=== PATIENT | female | born 1930 | race Caucasian/White ===

== ENCOUNTER 2016-12-17 19:57 | Inpatient (IN) | payer MEDICARE ==
[~2016-12-17] VITALS: Ht 162.6 cm; Wt 61.2 kg
[~2016-12-17 19:57] MED LIST: AMIO200T2 PO; CIPR-262 PO; LEVO50TA8 PO; METO-302 PO; RIVA10TA PO; ZOLP5TAB2 PO
[2016-12-17 21:26] LABS: *BILIRUBIN,URIN NEGATIVE (NEGATIVE); *BLOOD, URINE 2+ (NEGATIVE); *CLARITY,URINE CLOUDY (CLEAR); *COLOR,URINE YELLOW (YELLOW); *KETONES,URINE NEGATIVE (NEGATIVE); *PROTEIN,URINE 2+ (NEGATIVE); *UROBILINOGEN,URINE 0.2 E.U./dl (NORMAL); LEUKOCYTE ESTERASE ,URINE 3+ (NEGATIVE); UGLUCOSE NEGATIVE (NEGATIVE)
[2016-12-17 21:35] LABS: CALCIUM 8.8 mg/dL (8.5-10.1); NITRITE, URINE POSITIVE (NEGATIVE); POTASSIUM 4.1 mmol/L (3.5-5.1)
[2016-12-17 21:36] LABS: WBC,URINE TNTC /HPF (0-3)
[2016-12-17 21:37] LABS: BACTERIA,URINE MANY /HPF (NONE SEEN); BASOPHILS # (AUTO) 0.1 K/uL (0.0-0.2); BASOPHILS % (AUTO) 0.4 % (0.0-2.0); EOSINOPHILS # (AUTO) 0.1 K/uL (0.0-0.7); EOSINOPHILS % (AUTO) 0.3 % (0.0-7.0); HEMATOCRIT 39.2 % (37.0-47.0); HEMOGLOBIN 13.1 g/dL (12.0-16.0); LYMPHOCYTES % (AUTO) 10.8 % (20.5-51.5); MEAN CORPUSCULAR HEMOGLOBIN 32.2 uug (27.0-31.0); MEAN CORPUSCULAR HGB CONC 33 g/dL (32.0-37.0); MEAN CORPUSCULAR VOLUME 96.4 fL (81.0-99.0); MONOCYTES # (AUTO) 2.1 K/uL (0.1-1.30); MONOCYTES % (AUTO) 11.4 % (0.0-11.0); NEUTROPHILS # (AUTO) 13.8 K/uL (1.8-8.9); NEUTROPHILS % (AUTO) 77.1 % (38.5-71.5); PLATELET COUNT (AUTO) 335 K/uL (150-450); RED BLOOD CELL COUNT(AUTO) 4.07 MIL/uL (4.20-5.40); RED CELL DISTRIBUTION WIDTH 13.4 % (11.5-14.5); SQUAMOUS EPITHELIAL CELL,UR FEW /HPF (NONE SEEN); WHITE BLOOD COUNT (AUTO) 18.1 K/uL (4.0-11.2)
[2016-12-17 21:38] LABS: CREATININE 1.4 mg/dL (0.6-1.3)
--- NOTE | 2016-12-17 22:08 | NUR ---
EPIC CONTACTED, SPOKE WITH RESPONDER, WILL HAVE DR. STRONG PAGED....
[2016-12-17] MEDS ORDERED: CEFTRIAXONE 1 G in IV DEXTROSE 5% 50 ML IV ONE (22:15)
[2016-12-17] MEDS ORDERED: IV NORMAL SALINE 500 ML BAG IV ONE (22:15)
[2016-12-17 22:17] LABS: ACANTHOCYTES 2+; BAND % (MANUAL) 4 % (0-10); EOSINOPHILS % (MANUAL) 1 % (0-8); LYMPHOCYTES % (MANUAL) 11 % (20-40); MONOCYTES % (MANUAL) 11 % (2-10); NEUTROPHILS % (MANUAL) 73 % (42-75); PLATELET ESTIMATE ADEQUATE
[2016-12-17] MEDS ORDERED: CEFTRIAXONE 1 G VIAL ONE (22:38)
[2016-12-17] MEDS ORDERED: DIPH50CA37 PO (23:02)
--- NOTE | 2016-12-17 23:24 | NUR ---
Pt. admitted to med surg , under care of Dr. Jimenez, Belongs List completed, pt is alert, oriented x 4, no resp distress noted or reported upon assessment. pt to be transferred via gurney...
--- NOTE | 2016-12-17 23:30 | NUR ---
ADMITTED NEW PATIENT TO ROOM 209, ALERT, ORIENTED X4,TEMP 98.2, DENIES PAIN/DISCOMFORT,NSR RATE 65 ON TELE MONITOR,PATIENT RECEIVED ROCEPHIN 1 GM IV FROM ER.PT C/O INSOMNIA WILL NOTIFY .
[2016-12-17 23:51] VITALS: BP 136/62
[2016-12-18] MEDS ORDERED: ACETAMINOPHEN 325 MG TABLET PO PRN
[2016-12-18] MEDS ORDERED: ONDANSETRON 4 MG/2 ML VIAL IV PRN
[2016-12-18] MEDS ORDERED: diphenhydrAMINE 50 MG CAPSULE PO PRN
[2016-12-18] MEDS ORDERED: MORPHINE SULFATE 2 MG/1 ML DISP.SYRIN IV PRN
[2016-12-18] MEDS ORDERED: MAGNESIUM HYDROXIDE 30 ML LIQUID UDC PO PRN
[2016-12-18] MEDS ORDERED: IV 1/2NS 1000 ML 1,000 ML IV PRN
[2016-12-18] MEDS: ZOLPIDEM 5 MG TABLET PO PRN ×2 (00:39→23:43)
[2016-12-18] MEDS ORDERED: ZOLPIDEM 5 MG TABLET ONE (00:45)
[2016-12-18 05:43] VITALS: BP 138/72
--- NOTE | 2016-12-18 05:58 | NUR ---
PATIENT SLEPT WELL , TOOK AMBIEN FOR INSOMNIA,NSR ON MONITOR,AFEBRILE, NO ACUTE DISTRESS OVER NIGHT.FALL PRECAUTIONS, INSTRUCTED PATIENT TO CALL FOR ASSISTANCE.
[2016-12-18 06:35] LABS: BASOPHILS # (AUTO) 0.2 K/uL (0.0-0.2); BASOPHILS % (AUTO) 1.1 % (0.0-2.0); EOSINOPHILS # (AUTO) 0.1 K/uL (0.0-0.7); EOSINOPHILS % (AUTO) 0.7 % (0.0-7.0); HEMATOCRIT 36.1 % (37.0-47.0); LYMPHOCYTES # (AUTO) 2.6 K/uL (0.8-4.8); LYMPHOCYTES % (AUTO) 13.4 % (20.5-51.5); MEAN CORPUSCULAR HEMOGLOBIN 32.6 uug (27.0-31.0); MEAN CORPUSCULAR HGB CONC 33 g/dL (32.0-37.0); MEAN CORPUSCULAR VOLUME 97.6 fL (81.0-99.0); MONOCYTES # (AUTO) 2.8 K/uL (0.1-1.30); MONOCYTES % (AUTO) 14.3 % (0.0-11.0); NEUTROPHILS % (AUTO) 70.5 % (38.5-71.5); PLATELET COUNT (AUTO) 316 K/uL (150-450); RED BLOOD CELL COUNT(AUTO) 3.69 MIL/uL (4.20-5.40); WHITE BLOOD COUNT (AUTO) 19.7 K/uL (4.0-11.2)
[2016-12-18] MEDS ORDERED: IV 1/2NS 1000 ML 1,000 ML IV SCH (07:32)
[2016-12-18 07:53] LABS: ALBUMIN 2.8 g/dL (3.4-5.0); BILIRUBIN,TOTAL 0.7 mg/dL (0.2-1.0); CALCIUM 8.5 mg/dL (8.5-10.1); CREATININE 1.1 mg/dL (0.6-1.3); MAGNESIUM 1.8 mg/dL (1.8-2.4); POTASSIUM 3.9 mmol/L (3.5-5.1); TOTAL PROTEIN, SERUM 6.9 g/dL (6.4-8.2)
--- NOTE | 2016-12-18 08:00 | NUR ---
AWAKE ALERT NO SOB OR PAIN ON FALL PRECAUTION BED ALARM ON AND CALL CLARK IN REACH
[2016-12-18] MEDS: PANTOPRAZOLE SODIUM 40 MG TABLET.DR PO SCH (08:44)
[2016-12-18 08:45] LABS: THYROID STIMULATING HORMONE 1.126 mIU/mL (0.358-3.740)
[2016-12-18] MEDS: LEVOTHYROXINE SODIUM 50 MCG TABLET PO SCH (08:46)
[2016-12-18] MEDS: AMIODARONE HCL 200 MG TABLET PO SCH (08:46)
[2016-12-18 11:09] LABS: LYMPHOCYTES % (MANUAL) 15 % (20-40); MONOCYTES % (MANUAL) 4 % (2-10); NEUTROPHILS % (MANUAL) 81 % (42-75); PLATELET ESTIMATE ADEQUATE
[2016-12-18 11:45] VITALS: BP 114/66
--- NOTE | 2016-12-18 13:00 | NUR ---
DR MORGAN,O SEE PATIENT AND FAMILY THIS PM ,ASSIST OOB UP IN CHAIR AND AMB IN THE HALKL WAY DOING WELL PROJECT ANALYST PAIN OR FEVER
[2016-12-18 15:46] VITALS: BP 109/57
--- NOTE | 2016-12-18 17:00 | NUR ---
RESTING HEMODYNAMIC STATUS STABLE NO SOB OR FEVER SAFETY MEASURE PROVIDED CALL CLARK IN REACH
[2016-12-18 19:00] VITALS: BP 133/66
--- NOTE | 2016-12-18 20:59 | NUR ---
Received patient awake, alert and resting comfortably in bed. Denied pain, no s/s of distress. Call neil within reach. Will continue to monitor.
[2016-12-18] MEDS ORDERED: DOCUSATE SODIUM 250 MG CAPSULE PO SCH (21:00)
[2016-12-18] MEDS: DOCUSATE SODIUM 100 MG CAPSULE PO SCH (21:00)
[2016-12-18] MEDS: CEFTRIAXONE 1 G in IV DEXTROSE 5% 50 ML IV SCH ×3 (23:25)
[2016-12-19 04:00] VITALS: BP 128/65
--- NOTE | 2016-12-19 06:46 | NUR ---
Patient slept through the night, no s/s of distress. No complaints of pain. Assisted to the bathroom; no hematuria noted, verbalized no discomfort upon voiding. Due meds given. Frequent checks done. Will endorse accordingly.
[2016-12-19] MEDS: LEVOTHYROXINE SODIUM 50 MCG TABLET PO SCH (06:55)
[2016-12-19] MEDS: PANTOPRAZOLE SODIUM 40 MG TABLET.DR PO SCH (06:56)
[2016-12-19 06:58] LABS: BASOPHILS # (AUTO) 0.1 K/uL (0.0-0.2); BASOPHILS % (AUTO) 0.4 % (0.0-2.0); EOSINOPHILS # (AUTO) 0.2 K/uL (0.0-0.7); EOSINOPHILS % (AUTO) 1.5 % (0.0-7.0); HEMATOCRIT 36.7 % (37.0-47.0); HEMOGLOBIN 11.8 g/dL (12.0-16.0); LYMPHOCYTES % (AUTO) 18.9 % (20.5-51.5); MEAN CORPUSCULAR HEMOGLOBIN 31.5 uug (27.0-31.0); MEAN CORPUSCULAR HGB CONC 32 g/dL (32.0-37.0); MEAN CORPUSCULAR VOLUME 97.8 fL (81.0-99.0); MONOCYTES # (AUTO) 2.8 K/uL (0.1-1.30); MONOCYTES % (AUTO) 17.9 % (0.0-11.0); NEUTROPHILS # (AUTO) 9.6 K/uL (1.8-8.9); NEUTROPHILS % (AUTO) 61.3 % (38.5-71.5); PLATELET COUNT (AUTO) 338 K/uL (150-450); RED BLOOD CELL COUNT(AUTO) 3.76 MIL/uL (4.20-5.40); RED CELL DISTRIBUTION WIDTH 12.9 % (11.5-14.5); WHITE BLOOD COUNT (AUTO) 15.8 K/uL (4.0-11.2)
[2016-12-19 07:18] LABS: ALBUMIN 2.7 g/dL (3.4-5.0); BILIRUBIN,TOTAL 0.5 mg/dL (0.2-1.0); CALCIUM 8.5 mg/dL (8.5-10.1); CREATININE 1.1 mg/dL (0.6-1.3); MAGNESIUM 1.9 mg/dL (1.8-2.4); PHOSPHOROUS 2.8 mg/dL (2.5-4.9); POTASSIUM 3.9 mmol/L (3.5-5.1); TOTAL PROTEIN, SERUM 7.1 g/dL (6.4-8.2)
--- NOTE | 2016-12-19 08:00 | NUR ---
AWAKE ALERT COOPERATE WELL NO PAIN OR SOB AT THIS TIME RESTING WITH CALL CLARK IN REACH ON FALL PRECAUTION
[2016-12-19] MEDS: AMIODARONE HCL 200 MG TABLET PO SCH (09:35)
[2016-12-19 10:37] LABS: EOSINOPHILS % (MANUAL) 3 % (0-8); LYMPHOCYTES % (MANUAL) 18 % (20-40); MONOCYTES % (MANUAL) 15 % (2-10); NEUTROPHILS % (MANUAL) 64 % (42-75); PLATELET ESTIMATE ADEQUATE
[2016-12-19 12:00] VITALS: BP 99/62
--- NOTE | 2016-12-19 12:00 | NUR ---
CLINICAL PHARMACY NOTE(REVIEW OF [facility] MEDICATIONS This is an 86 y/o female brought to ER for worsening weakness. Past medical history from past visit Past Medical Hx: Yes HX Neurological Disorder: No HX Cardiac Disorder: Yes (RHYTHM) HX Respiratory Disorder: No HX Gastrointestinal Disorder: Yes (GERD ) HX Genitourinary Disorder: Yes HX Diabetes: No HX Cancer: Yes (LT BREAST) HX Musculoskeletal Disorder: Yes (OSTEOARTHRITIS) HX Psychiatric Problems: No admitting diagnosis Urosepsis All medications review as of today two medications on high risk list zolpidem and amiodarone. Both medications for home medication list. Zolpidem associated with sedation and increase fall risk. Amiodarone is associated with increase toxicities,including thyroid disease,pulmonary disorders, and QT prolongation. First-line therapy in patients with concomitant heart failure or substantial left ventricular hypertrophy if rhythm control is preferred over rate control. Patient last visit here was 09/05/15 and was seen by electroformer who recommended continuing amiodarone. First entered on our medication reconciliation list on 02/20/14. Lin was first entered on our medication reconciliation on 09/06/15. No recommendations at this time. Patient has been on amiodarone for several years now and has been seen by a electroformer in the past. Zolpidem patient may have become dependent on and maybe difficult to discontinue at this time.
[2016-12-19 16:30] VITALS: BP 111/66
--- NOTE | 2016-12-19 18:00 | NUR ---
RESTING WELL AND QUIET HEMODYNAMIC STATUS STABLE SAFETY MEASURE PROVIDED CALL CLARK WITHIN REACH
[2016-12-19 19:00] VITALS: BP 101/65
--- NOTE | 2016-12-19 19:15 | NUR ---
PATIENT ALERT, ORIENTED, SEATED AT THE CHAIR, NO COMPLAIN OF PAIN, AMBULATE TO BATHROOM, WITH MIN ASSIST, CONT TO MONITOR.
[2016-12-19] MEDS: DOCUSATE SODIUM 100 MG CAPSULE PO SCH (20:50)
[2016-12-19] MEDS: CEFTRIAXONE 1 G in IV DEXTROSE 5% 50 ML IV SCH (23:20)
[2016-12-20] MEDS: ZOLPIDEM 5 MG TABLET PO PRN (00:16)
--- NOTE | 2016-12-20 00:30 | NUR ---
PATIENT IV HEPLOCK ON LEFT FOREAM DISLOGGED, D/C THE IV KEPT SITE ELEVATED DUE TO SLIGHT SWELLING, APPLIED COOL PACK FOR FEW MINUTES. CONT TO MONITOR.
[2016-12-20 04:00] VITALS: BP 134/83
[2016-12-20] MEDS: PANTOPRAZOLE SODIUM 40 MG TABLET.DR PO SCH (06:00)
[2016-12-20] MEDS: LEVOTHYROXINE SODIUM 50 MCG TABLET PO SCH (06:00)
[2016-12-20 06:17] LABS: BASOPHILS # (AUTO) 0.1 K/uL (0.0-0.2); BASOPHILS % (AUTO) 0.8 % (0.0-2.0); EOSINOPHILS # (AUTO) 0.3 K/uL (0.0-0.7); EOSINOPHILS % (AUTO) 2.1 % (0.0-7.0); HEMATOCRIT 38.5 % (37.0-47.0); HEMOGLOBIN 12.6 g/dL (12.0-16.0); MEAN CORPUSCULAR HEMOGLOBIN 32.3 uug (27.0-31.0); MEAN CORPUSCULAR HGB CONC 33 g/dL (32.0-37.0); MEAN CORPUSCULAR VOLUME 98.2 fL (81.0-99.0); MONOCYTES # (AUTO) 2.1 K/uL (0.1-1.30); MONOCYTES % (AUTO) 16.4 % (0.0-11.0); NEUTROPHILS # (AUTO) 7.4 K/uL (1.8-8.9); NEUTROPHILS % (AUTO) 57.7 % (38.5-71.5); PLATELET COUNT (AUTO) 355 K/uL (150-450); RED BLOOD CELL COUNT(AUTO) 3.92 MIL/uL (4.20-5.40); WHITE BLOOD COUNT (AUTO) 12.9 K/uL (4.0-11.2)
--- NOTE | 2016-12-20 06:18 | NUR ---
PATIENT SLEPT WELL MOST OF THE NIGHT, SWELLING ON LEFT FOREARM SUBSIDED, COMPLAIN OF ARTHITIS PAIN ON SHOULDER, NECK, REQUEST FOR TYLENOL AND WHEN BACK TO SLEEP, NO CHEST NO SOB NOTED, CALL LIGHT WITHIN REACH. ASSIST WITH TOILETING, CALL LIGHT WITHIN REACH.
[2016-12-20 07:40] LABS: CALCIUM 8.6 mg/dL (8.5-10.1); CREATININE 1.1 mg/dL (0.6-1.3); PHOSPHOROUS 3.6 mg/dL (2.5-4.9); POTASSIUM 3.8 mmol/L (3.5-5.1)
[2016-12-20] MEDS: AMIODARONE HCL 200 MG TABLET PO SCH (08:50)
--- NOTE | 2016-12-20 08:50 | NUR ---
RECEIVED PATIENT IN BED AWAKE ALERT AND ORIENTED DENIES PAIN OR DISCOMFORTS AT THIS TIME.REMAIN ON ANTIBIOTICS ORDERED WITH NO ADVERSE OR ALLERGIC REACTIONS AT THIS TIME.MADE COMFORTABLE NOT IN DISTRESS AT THIS TIME.
[2016-12-20 09:10] LABS: EOSINOPHILS % (MANUAL) 2 % (0-8); LYMPHOCYTES % (MANUAL) 24 % (20-40); MONOCYTES % (MANUAL) 16 % (2-10); NEUTROPHILS % (MANUAL) 58 % (42-75); PLATELET ESTIMATE ADEQUATE
--- NOTE | 2016-12-20 11:00 | NUR ---
SEEN BY DR MORGAN WITH ORDER TO DISCHARGE PATIENT HOME TODAY.PATIENTS SON IS AT HER BEDSIDE AND STATED THAT SHE WILL TAKE HER HOME.
--- NOTE | 2016-12-20 11:01 | NUR ---
Discharge: The patient will be discharged today back home [[address], [place] [address]] [address] Loomis Her son will be picking her up via private car. [facility] [ ; ] will follow up.
[2016-12-20 11:26] VITALS: BP 134/85
--- NOTE | 2016-12-20 11:45 | NUR ---
PATIENT DISCHARGED PICKED UP BY HER SON IN SATISFACTORY CONDITION WITH DISCHARGE INSTRUCTIONS AND PRESCRIPTIONS ANS PATIENT INSTRUCTED TO CALL HER PRIMARY DOCTOR FOR A FOLLOW UP APPOINTMENT WITHIN THE NEXT ONE TO TWO WEEKS ANS SHE EXPRESSED UNDERSTANDING.PATIENT WAS SEEN AND EDUCATED BY [facility].
== END 2016-12-20 11:45 | disposition home health service (06) | DRG 871 ==
LOC: ER 19:57 → MED 23:22 → TELE 23:50 → MED 12-18 10:00
PROVIDERS: ADMIT Internal Medicine; ATTEND Internal Medicine
DX: A41.9 Sepsis, unspecified organism (principal); N17.0 Acute kidney failure with tubular necrosis; N39.0 Urinary tract infection, site not specified; C94.6 Myelodysplastic disease, not elsewhere classified; K59.00 Constipation, unspecified; E03.9 Hypothyroidism, unspecified; K21.9 Gastro-esophageal reflux disease without esophagitis; M19.90 Unspecified osteoarthritis, unspecified site; Z80.9 Family history of malignant neoplasm, unspecified; I10 Essential (primary) hypertension; D51.9 Vitamin B12 deficiency anemia, unspecified; I48.0 Paroxysmal atrial fibrillation; Z91.81 History of falling; M06.9 Rheumatoid arthritis, unspecified; Z82.61 Family history of arthritis; Z90.81 Acquired absence of spleen
CPT/HCPCS: 36415; 70030-TC; 71010; 83550; 83605; 83735; 84100; 84443; 85025; 85730; 87040; 87077; 87086; 92506; 93005; 97001; A4663; J0696; J3490; J7040; J7060

== ENCOUNTER 2016-12-23 06:41 | Inpatient (IN) | payer MEDICARE ==
[~2016-12-23] VITALS: Ht 160 cm; Wt 59.4 kg
[~2016-12-23 06:41] MED LIST changes: -CIPR-262 PO; +DIPH50CA37 PO; -RIVA10TA PO
[2016-12-23 08:18] LABS: BASOPHILS # (AUTO) 0.1 K/uL (0.0-0.2); BASOPHILS % (AUTO) 0.4 % (0.0-2.0); EOSINOPHILS # (AUTO) 0.1 K/uL (0.0-0.7); EOSINOPHILS % (AUTO) 0.9 % (0.0-7.0); HEMATOCRIT 33.8 % (37.0-47.0); HEMOGLOBIN 11.5 g/dL (12.0-16.0); LYMPHOCYTES # (AUTO) 2.8 K/uL (0.8-4.8); LYMPHOCYTES % (AUTO) 17.8 % (20.5-51.5); MEAN CORPUSCULAR HEMOGLOBIN 32.7 uug (27.0-31.0); MEAN CORPUSCULAR HGB CONC 34 g/dL (32.0-37.0); MEAN CORPUSCULAR VOLUME 96.2 fL (81.0-99.0); NEUTROPHILS # (AUTO) 9.8 K/uL (1.8-8.9); NEUTROPHILS % (AUTO) 61.9 % (38.5-71.5); PLATELET COUNT (AUTO) 448 K/uL (150-450); RED BLOOD CELL COUNT(AUTO) 3.51 MIL/uL (4.20-5.40); RED CELL DISTRIBUTION WIDTH 12.9 % (11.5-14.5); WHITE BLOOD COUNT (AUTO) 15.8 K/uL (4.0-11.2)
[2016-12-23 08:19] LABS: CALCIUM 8.5 mg/dL (8.5-10.1); CREATININE 1.2 mg/dL (0.6-1.3); POTASSIUM 3.9 mmol/L (3.5-5.1)
[2016-12-23 08:25] LABS: BILIRUBIN,DIRECT 0.2 mg/dL (0.0-0.2); BILIRUBIN,TOTAL 0.6 mg/dL (0.2-1.0); TOTAL PROTEIN, SERUM 7.8 g/dL (6.4-8.2)
[2016-12-23 08:27] LABS: TROPONIN I < 0.017 ng/mL (0.00-0.056)
[2016-12-23 08:37] LABS: LACTIC ACID 0.8 mmol/L (0.4-2.0)
[2016-12-23 08:42] LABS: EOSINOPHILS % (MANUAL) 2 % (0-8); LYMPHOCYTES % (MANUAL) 16 % (20-40); MONOCYTES % (MANUAL) 20 % (2-10); NEUTROPHILS % (MANUAL) 62 % (42-75); PLATELET ESTIMATE ADEQUATE
[2016-12-23] MEDS ORDERED: MORPHINE SULFATE 4 MG/1 ML DISP.SYRIN ONE (08:57)
[2016-12-23] MEDS ORDERED: ONDANSETRON 4 MG/2 ML VIAL ONE (08:57)
[2016-12-23] MEDS ORDERED: MORPHINE SULFATE 4 MG/1 ML DISP.SYRIN IV ONE (09:30)
[2016-12-23] MEDS ORDERED: ONDANSETRON IV *ER 4 MG/2 ML VIAL IV ONE (09:30)
[2016-12-23 11:05] VITALS: BP 121/65
[2016-12-23] MEDS ORDERED: HYDROMORPHONE 1 MG/1 ML DISP.SYRIN IV PRN (11:45)
[2016-12-23] MEDS ORDERED: MAGNESIUM HYDROXIDE 30 ML LIQUID UDC PO PRN (11:45)
[2016-12-23] MEDS ORDERED: ONDANSETRON 4 MG/2 ML VIAL IV PRN (11:45)
[2016-12-23] MEDS ORDERED: ZOLPIDEM 5 MG TABLET PO PRN (11:45)
[2016-12-23] MEDS ORDERED: HYDROCODONE/APAP 5-325MG TABLET PO PRN (11:45)
[2016-12-23] MEDS ORDERED: ACETAMINOPHEN 325 MG TABLET PO PRN (11:45)
[2016-12-23] MEDS: CARISOPRODOL 350 MG TABLET PO SCH ×2 (13:09→17:00)
[2016-12-23 15:24] VITALS: BP 130/70
[2016-12-23] MEDS ORDERED: KETOROLAC TROMETHAMINE 15 MG INJ IVP STA (17:49)
[2016-12-23] MEDS: methylPREDNISolone SOD SUCC 40 MG/ML VIAL IV SCH ×2 (18:27→21:36)
[2016-12-23] MEDS ORDERED: NAPROXEN 250 MG TABLET PO SCH (20:00)
[2016-12-23 20:57] VITALS: BP 108/57
[2016-12-23] MEDS ORDERED: DOCUSATE SODIUM 250 MG CAPSULE PO SCH (21:00)
[2016-12-23] MEDS ORDERED: DOCUSATE SODIUM 100 MG CAPSULE PO SCH (21:00)
[2016-12-23] MEDS ORDERED: NAPROXEN 500 MG TABLET ONE (21:56)
[2016-12-24 05:14] VITALS: BP 108/58
[2016-12-24] MEDS: methylPREDNISolone SOD SUCC 40 MG/ML VIAL IV SCH ×2 (06:45→14:23)
[2016-12-24] MEDS ORDERED: LEVOTHYROXINE SODIUM 50 MCG TABLET PO SCH (07:00)
[2016-12-24] MEDS ORDERED: PANTOPRAZOLE SODIUM 40 MG TABLET.DR PO SCH (07:00)
[2016-12-24 07:17] LABS: BASOPHILS # (AUTO) 0.1 K/uL (0.0-0.2); BASOPHILS % (AUTO) 0.5 % (0.0-2.0); EOSINOPHILS % (AUTO) 0.1 % (0.0-7.0); HEMATOCRIT 36.3 % (37.0-47.0); HEMOGLOBIN 12.3 g/dL (12.0-16.0); LYMPHOCYTES # (AUTO) 1.7 K/uL (0.8-4.8); LYMPHOCYTES % (AUTO) 13.6 % (20.5-51.5); MEAN CORPUSCULAR HEMOGLOBIN 32.8 uug (27.0-31.0); MEAN CORPUSCULAR HGB CONC 34 g/dL (32.0-37.0); MEAN CORPUSCULAR VOLUME 97.2 fL (81.0-99.0); MONOCYTES # (AUTO) 0.1 K/uL (0.1-1.30); MONOCYTES % (AUTO) 0.8 % (0.0-11.0); NEUTROPHILS # (AUTO) 10.4 K/uL (1.8-8.9); PLATELET COUNT (AUTO) 465 K/uL (150-450); RED BLOOD CELL COUNT(AUTO) 3.74 MIL/uL (4.20-5.40); RED CELL DISTRIBUTION WIDTH 12.8 % (11.5-14.5); WHITE BLOOD COUNT (AUTO) 12.3 K/uL (4.0-11.2)
[2016-12-24 07:47] LABS: ALBUMIN 2.8 g/dL (3.4-5.0); BILIRUBIN,TOTAL 0.4 mg/dL (0.2-1.0); CALCIUM 9.3 mg/dL (8.5-10.1); CREATININE 1.2 mg/dL (0.6-1.3); MAGNESIUM 2.4 mg/dL (1.8-2.4); PHOSPHOROUS 4.4 mg/dL (2.5-4.9); POTASSIUM 4.9 mmol/L (3.5-5.1); TOTAL PROTEIN, SERUM 7.7 g/dL (6.4-8.2)
[2016-12-24] MEDS: CARISOPRODOL 350 MG TABLET PO SCH ×2 (08:53→12:54)
[2016-12-24] MEDS: NAPROXEN 250 MG TABLET PO SCH ×2 (08:54→12:54)
[2016-12-24] MEDS ORDERED: AMIODARONE HCL 200 MG TABLET PO SCH (09:00)
[2016-12-24] MEDS ORDERED: METOPROLOL SUCCINATE XL 25 MG TAB.SR.24H PO SCH (09:00)
[2016-12-24 11:34] VITALS: BP 106/60
[2016-12-24] MEDS ORDERED: OMEP20TA20 PO (12:59)
[2016-12-24] MEDS ORDERED: METH4TAB3 PO (12:59)
[2016-12-24] MEDS ORDERED: HYDR-3326 PO (12:59)
[2016-12-24 15:29] VITALS: BP 109/54
== END 2016-12-24 16:00 | disposition home or self-care (01) | DRG 551 ==
LOC: ER 06:44 → MED 10:17
PROVIDERS: ADMIT Internal Medicine; ATTEND Internal Medicine
DX: M50.122 Cervical disc disorder at C5-C6 level with radiculopathy (principal); N17.0 Acute kidney failure with tubular necrosis; N39.0 Urinary tract infection, site not specified; M19.90 Unspecified osteoarthritis, unspecified site; K21.9 Gastro-esophageal reflux disease without esophagitis; E03.9 Hypothyroidism, unspecified; I48.0 Paroxysmal atrial fibrillation; H35.30 Unspecified macular degeneration; I10 Essential (primary) hypertension; M06.9 Rheumatoid arthritis, unspecified; M48.02 Spinal stenosis, cervical region; M21.90 Unspecified acquired deformity of unspecified limb; Z90.81 Acquired absence of spleen; Z85.3 Personal history of malignant neoplasm of breast; H91.90 Unspecified hearing loss, unspecified ear; M47.892 Other spondylosis, cervical region
CPT/HCPCS: 36415; 70030-TC; 71010; 72125; 83605; 83735; 84100; 85025; 85730; 86140; 87040; 93005; 97001; A4663; J1170; J1885; J2270; J2405; J2920

== ENCOUNTER 2017-03-01 09:16 | Emergency (ER) | payer MEDICARE ==
[~2017-03-01] VITALS: Ht 162.6 cm; Wt 65.8 kg
[~2017-03-01 09:16] MED LIST changes: +AMBIEN5 MG PO; -AMIO200T2 PO; +AMIODARONE HCL200 MG PO; +BENADRYL50 MG PO; +CIPRO500 MG PO; +DEXILANT30 MG PO; -DIPH50CA37 PO; -LEVO50TA8 PO; +LEVOTHYROXINE50 MCG PO; +MEDROL4 M1 PO; -METO-302 PO; +METOPROLOL SUCC25 MG PO; +NORCO 5-325 TA1 EACH PO; +PRILOSEC OTC20 MG PO; +XARELTO10 MG PO; -ZOLP5TAB2 PO
--- NOTE | 2017-03-01 09:34 | NUR ---
Dr Berumen at the bedside for eval and exam.
[2017-03-01] MEDS ORDERED: MAG HYDROX/AL HYDROX/SIMETH 30 ML LIQUID UDC PO ONE (10:00)
[2017-03-01] MEDS ORDERED: predniSONE 20 MG TABLET PO ONE (10:00)
--- NOTE | 2017-03-01 10:03 | NUR ---
Patient discharged to home in stable conditon. Written and verbal after care instructions given. Patient verbalizes understanding of instructions. pt left er accompained by son.
[2017-03-01] MEDS ORDERED: predniSONE 50 MG TABLET ONE (10:04)
[2017-03-01] MEDS ORDERED: predniSONE 10 MG TABLET ONE (10:04)
[2017-03-01] MEDS ORDERED: MAG HYDROX/AL HYDROX/SIMETH 30 ML LIQUID UDC ONE (10:04)
[2017-03-01 10:05] VITALS: BP 135/69; PULSE 72; RESP 15; O2SAT 97
[2017-03-17] MEDS ORDERED: NORCO 5-325 TA1 EACH PO (11:08)
[2017-03-17] MEDS ORDERED: METHYLPREDNISOLO4 M1 PO (11:08)
== END 2017-03-01 10:06 | disposition home or self-care (01) ==
LOC: ER 09:16
DX: M54.17 Radiculopathy, lumbosacral region (principal); I10 Essential (primary) hypertension; K21.9 Gastro-esophageal reflux disease without esophagitis; I48.91 Unspecified atrial fibrillation; E03.9 Hypothyroidism, unspecified; C50.912 Malignant neoplasm of unspecified site of left female breast; Z96.641 Presence of right artificial hip joint
CPT/HCPCS: 99283; A4663; J7512 ×2

== ENCOUNTER 2017-03-04 09:59 | Emergency (ER) | payer MEDICARE ==
[~2017-03-04] VITALS: Ht 162.6 cm; Wt 65.8 kg
[~2017-03-04 09:59] MED LIST changes: -AMBIEN5 MG PO; +AMIO200T2 PO; -AMIODARONE HCL200 MG PO; -BENADRYL50 MG PO; -CIPRO500 MG PO; -DEXILANT30 MG PO; +DIPH50CA37 PO; +HYDR-3326 PO; +LEVO50TA8 PO; -LEVOTHYROXINE50 MCG PO; -MEDROL4 M1 PO; +METH4TAB3 PO; +METO-302 PO; -METOPROLOL SUCC25 MG PO; -NORCO 5-325 TA1 EACH PO; +OMEP20TA20 PO; -PRILOSEC OTC20 MG PO; -XARELTO10 MG PO; +ZOLP5TAB2 PO
[2017-03-04] MEDS ORDERED: DEXAMETHASONE SOD PHOSPHATE 4 MG INJ IM ONE (10:30)
[2017-03-04] MEDS ORDERED: HYDROCODONE/APAP 5-325MG TABLET PO ONE (10:30)
--- NOTE | 2017-03-04 10:30 | NUR ---
Patient was seen by Md for "sciatica" pain.
[2017-03-04] MEDS ORDERED: HYDROCODONE/APAP 5-325MG TABLET ONE (10:41)
[2017-03-04] MEDS ORDERED: DEXAMETHASONE SOD PHOSPHATE 10 MG INJ ONE (10:42)
--- NOTE | 2017-03-04 11:23 | NUR ---
Patient states pain has diminished some.
== END 2017-03-04 11:36 | disposition home or self-care (01) ==
LOC: ER 09:59
DX: M54.40 Lumbago with sciatica, unspecified side (principal); I10 Essential (primary) hypertension; I48.91 Unspecified atrial fibrillation; K21.9 Gastro-esophageal reflux disease without esophagitis; E03.9 Hypothyroidism, unspecified; C50.912 Malignant neoplasm of unspecified site of left female breast
CPT/HCPCS: A4663; J1100

== ENCOUNTER 2017-03-12 21:08 | Emergency (ER) | payer MEDICARE ==
[~2017-03-12] VITALS: Ht 162.6 cm; Wt 61.2 kg
[2017-03-12] MEDS: predniSONE 20 MG TABLET PO ONE (22:02)
--- NOTE | 2017-03-12 22:05 | NUR ---
Patient discharged to home in stable conditon. Written and verbal after care instructions given. Patient verbalizes understanding of instructions.
[2017-03-12] MEDS ORDERED: predniSONE 20 MG TABLET ONE (22:11)
== END 2017-03-12 22:05 | disposition home or self-care (01) ==
LOC: ER 21:10
DX: M54.41 Lumbago with sciatica, right side (principal); I10 Essential (primary) hypertension; K21.9 Gastro-esophageal reflux disease without esophagitis; I48.91 Unspecified atrial fibrillation; M19.90 Unspecified osteoarthritis, unspecified site
CPT/HCPCS: A4663; J7512

== ENCOUNTER 2017-03-17 09:01 | Inpatient (IN) | payer MEDICARE ==
[~2017-03-17] VITALS: Ht 162.6 cm; Wt 60.8 kg
--- NOTE | 2017-03-17 09:10 | NUR ---
DR MOHR AT THE BEDSIDE FOR EVAL AND EXAM.
[2017-03-17] MEDS ORDERED: HYDROMORPHONE 1 MG/1 ML DISP.SYRIN IM ONE (09:15)
[2017-03-17] MEDS ORDERED: PROMETHAZINE HCL 25 MG/1 ML VIAL IM ONE (09:15)
[2017-03-17] MEDS ORDERED: PROMETHAZINE HCL 25 MG/1 ML VIAL ONE (09:32)
[2017-03-17] MEDS ORDERED: HYDROMORPHONE 2 MG/1 ML DISP.SYRIN ONE (09:32)
--- NOTE | 2017-03-17 09:56 | NUR ---
Patient is resting comfortably in bed with eyes closed, NAD noted.
--- NOTE | 2017-03-17 11:00 | NUR ---
pt back from ct.
[2017-03-17] MEDS ORDERED: HYDR-3326 PO (11:08)
[2017-03-17] MEDS ORDERED: METH4TAB16 PO (11:08)
[2017-03-17 11:27] LABS: BASOPHILS # (AUTO) 0.1 K/uL (0.0-8.0); BASOPHILS % (AUTO) 0.3 % (0.0-2.0); EOSINOPHILS # (AUTO) 0.2 K/uL (0.0-0.7); EOSINOPHILS % (AUTO) 0.7 % (0.0-7.0); HEMOGLOBIN 13.1 G/DL (12.0-16.0); LYMPHOCYTES % (AUTO) 13.2 % (20.5-51.5); MEAN CORPUSCULAR HGB CONC 33 g/dL (32.0-37.0); MEAN CORPUSCULAR VOLUME 100.5 FL (81.0-99.0); MONOCYTES # (AUTO) 3.3 K/UL (0.1-1.30); MONOCYTES % (AUTO) 14.9 % (0.0-11.0); NEUTROPHILS # (AUTO) 15.8 K/UL (1.8-8.9); NEUTROPHILS % (AUTO) 70.9 % (38.5-71.5); PLATELET COUNT (AUTO) 279 K/UL (150-450); RED BLOOD CELL COUNT(AUTO) 3.98 MIL/UL (4.2-5.4)
[2017-03-17 11:33] LABS: WHITE BLOOD COUNT (AUTO) 22.4 K/UL (4.0-11.2)
--- NOTE | 2017-03-17 11:37 | NUR ---
dr fam consulted dr wadsworth(ortho).
[2017-03-17] MEDS ORDERED: ACETAMINOPHEN 325 MG TABLET PO PRN (11:45)
[2017-03-17] MEDS ORDERED: HYDROCODONE/APAP 5-325MG TABLET PO PRN (11:45)
[2017-03-17] MEDS ORDERED: Z GUARD REMEDY PASTE 57 GM TUBE TOP PRN (11:45)
[2017-03-17] MEDS ORDERED: ONDANSETRON 4 MG/2 ML VIAL IV PRN (11:45)
[2017-03-17 11:52] LABS: CARBON DIOXIDE 29 mmol/L (21-32); CHLORIDE 104 mmol/L (98-107); CREATININE 1.1 mg/dL (0.6-1.3); GLUCOSE 86 mg/dL (74-106); POTASSIUM 3.7 mmol/L (3.5-5.1); UREA NITROGEN, BLOOD 26 mg/dL (7-18)
[2017-03-17 11:53] LABS: BAND % (MANUAL) 1 % (0-10); LYMPHOCYTES % (MANUAL) 14 % (20-40); MONOCYTES % (MANUAL) 13 % (2-10); NEUTROPHILS % (MANUAL) 72 % (42-75)
[2017-03-17 12:04] LABS: ALANINE AMINOTRANSFERASE 25 U/L (14-59); ALKALINE PHOSPHATASE 100 U/L (50-136); ASPARTATE AMINOTRANSFERASE 22 U/L (15-37); BILIRUBIN,DIRECT 0.3 mg/dL (0.0-0.2); BILIRUBIN,TOTAL 1.1 mg/dL (0.2-1.0); TOTAL PROTEIN, SERUM 6.6 g/dL (6.4-8.2)
[2017-03-17 12:30] VITALS: BP 151/81
--- NOTE | 2017-03-17 12:45 | NUR ---
RECEIVED FOR ADMISSION 87 YEARS OLD FEMALE FROM ED WITH DX OF INTRACTABLE BACK PAIN PLACED INTO BED FIXED AND MADE COMFORTABLE PATIENT IS HARD OF HEARING BUT ALERT AND ORIENTED AND ASSISTED WITH THE ADMISSION PROCESS.HEPLOCK LEFT WRIST IS INTACT WITH NO S/S OF INFILTERATION ON SITE.PATIENT ORIENTED TO FACILITY PROTOCOL MADE COMFORTABLE AND WILL OBSERVE.
[2017-03-17] MEDS: HYDROCODONE/APAP 10-325 MG TABLET PO PRN ×2 (13:25→22:47)
[2017-03-17 16:15] VITALS: BP 146/82
[2017-03-17] MEDS: HYDROMORPHONE 1 MG/1 ML DISP.SYRIN IV PRN ×3 (16:28→23:36)
--- NOTE | 2017-03-17 18:00 | NUR ---
REMAIN ON PAIN MANAGEMENT ORDERED AND HELPFULASSISTED WITH REPOSITIONING Q2H.IV HEPLOCK WAS CHANGED TO HER RIGHT AC WITH GAUGE NUMBER 20 WITH ONE ATTEMPT AND TOLERATED PROCEDURE WELL.
--- NOTE | 2017-03-17 19:40 | NUR ---
PT RECEIVED IN BED. A/OX4. ABLE TO MAKE NEEDS KNOWN. V/S STABLE. NO SIGNS OF ACUTE DISTRESS. NO COMPLAINTS OF PAIN AT THIS TIME. SAFETY MEASURES IMPLEMENTED. CALL LIGHT WITHIN REACH. WILL CONTINUE TO MONITOR.
[2017-03-17 20:00] VITALS: BP 138/84
[2017-03-17] MEDS: DOCUSATE SODIUM 250 MG CAPSULE PO SCH (22:46)
[2017-03-18] MEDS: HYDROMORPHONE 1 MG/1 ML DISP.SYRIN IV PRN ×4 (01:14→21:10)
[2017-03-18] MEDS ORDERED: HYDROMORPHONE 1 MG/1 ML DISP.SYRIN IV PRN (01:15)
[2017-03-18] MEDS ORDERED: HYDROMORPHONE 1 MG/1 ML DISP.SYRIN ONE (01:22)
[2017-03-18 04:45] VITALS: BP 136/74
--- NOTE | 2017-03-18 05:32 | NUR ---
PT ASLEEP INTERMITTENTLY THROUGHOUT SHIFT. V/S STABLE. NO SIGNS OF ACUTE DISTRESS. PT REQUEST PAIN MEDICATION FOR PAIN LEVEL 10/10 THROUGHOUT THE NIGHT. MEDICATION ADMINISTERED ORDERED. PT VERBALIZED RELIEF OF PAIN. NEEDS ATTENDED. SAFETY MAINTAIN. CALL LIGHT WITHIN REACH.
[2017-03-18] MEDS: PANTOPRAZOLE SODIUM 40 MG TABLET.DR PO SCH (06:25)
[2017-03-18] MEDS: LEVOTHYROXINE SODIUM 50 MCG TABLET PO SCH (06:25)
[2017-03-18] MEDS: MAGNESIUM HYDROXIDE 30 ML LIQUID UDC PO PRN ×2 (06:38→20:06)
[2017-03-18 06:41] LABS: BASOPHILS % (AUTO) 0.2 % (0.0-2.0); EOSINOPHILS # (AUTO) 0.1 K/uL (0.0-0.7); EOSINOPHILS % (AUTO) 0.7 % (0.0-7.0); HEMATOCRIT 40.6 % (37-47); HEMOGLOBIN 13.4 G/DL (12.0-16.0); LYMPHOCYTES # (AUTO) 3.4 K/UL (0.8-4.8); LYMPHOCYTES % (AUTO) 20.7 % (20.5-51.5); MEAN CORPUSCULAR HEMOGLOBIN 33.2 UUG (27.0-31.0); MEAN CORPUSCULAR HGB CONC 33 g/dL (32.0-37.0); MEAN CORPUSCULAR VOLUME 100.7 FL (81.0-99.0); MONOCYTES # (AUTO) 1.7 K/UL (0.1-1.30); NEUTROPHILS # (AUTO) 11.4 K/UL (1.8-8.9); NEUTROPHILS % (AUTO) 68.4 % (38.5-71.5); PLATELET COUNT (AUTO) 316 K/UL (150-450); RED BLOOD CELL COUNT(AUTO) 4.03 MIL/UL (4.2-5.4); WHITE BLOOD COUNT (AUTO) 16.6 K/UL (4.0-11.2)
[2017-03-18 07:13] LABS: THYROID STIMULATING HORMONE 3.486 mIU/mL (0.358-3.740)
[2017-03-18] MEDS: HYDROCODONE/APAP 10-325 MG TABLET PO PRN ×2 (07:46→20:05)
[2017-03-18 07:57] LABS: CARBON DIOXIDE 31 mmol/L (21-32); CHLORIDE 102 mmol/L (98-107); CHOLESTEROL 160 mg/dL (<200); CREATININE 1.1 mg/dL (0.6-1.3); GLUCOSE 77 mg/dL (74-106); HDL CHOLESTEROL 82 mg/dL (40-60); MAGNESIUM 1.9 mg/dL (1.8-2.4); TRIGLYCERIDES 105 MG/DL (30-150); UREA NITROGEN, BLOOD 23 mg/dL (7-18)
[2017-03-18] MEDS ORDERED: HYDROMORPHONE 2 MG/1 ML DISP.SYRIN IV STA ×2 (08:54→14:29)
--- NOTE | 2017-03-18 08:55 | NUR ---
PATIENT IS HAVING SO MUCH PAIN CRYING AND VERY UNCOMFORTABLE I ALREADY GAVE HER MORCO THIS AM AND IT WAS TOO EARLY FOR ANOTHER DILAUDID SHOT SO I CALLED HEATHER SLITTER HELPER SPOKE TO HER WITH ORDER TO GIVE HER ONE DOSE OS 2 MG DILAUDID STAT AND SHE IS ON HER WAY AND WILL RECHECK THE PATIENT.
--- NOTE | 2017-03-18 09:00 | NUR ---
CALLED DR SAMAYOA TO INQUIRE IF HE WAS STILL COMING TO SEE THE PATIENT AND HE STATED THAT HE WILL LATER THIS AFTERNOON BUT REVIEWED THE RESULT OF THE CT DONE AND THEN GAVE ME NEW ORDERS.
[2017-03-18 09:20] LABS: EOSINOPHILS % (MANUAL) 1 % (0-8); LYMPHOCYTES % (MANUAL) 25 % (20-40); MONOCYTES % (MANUAL) 8 % (2-10); NEUTROPHILS % (MANUAL) 66 % (42-75)
[2017-03-18] MEDS: METOPROLOL SUCCINATE XL 25 MG TAB.SR.24H PO SCH (09:27)
[2017-03-18] MEDS: AMIODARONE HCL 200 MG TABLET PO SCH (09:27)
--- NOTE | 2017-03-18 10:20 | NUR ---
MRI L SPINE APPROVED
--- NOTE | 2017-03-18 10:35 | NUR ---
CALL RECEIVED FROM [facility] MRI COODINATOR WANTED TO KNOW IF PATIENT HAS A METAL IN HER HIM PATIENT DOES NOT KNOW SO HE STATED THAT HE WILL LOOK UP THE PREVIOUS REPORT AND WILL CALL ME BACK.
--- NOTE | 2017-03-18 11:17 | NUR ---
DR MARTINEZ HERE TO SEE PATIENT WITH NEW ORDERS AND NOTED.
[2017-03-18] MEDS: GABAPENTIN 100 MG CAPSULE PO SCH ×3 (11:31→17:30)
[2017-03-18] MEDS: KETOROLAC TROMETHAMINE 15 MG INJ IVP SCH ×2 (11:31→17:31)
[2017-03-18 12:15] VITALS: BP 91/53
--- NOTE | 2017-03-18 12:49 | NUR ---
CALL RECEIVED FROM JAKE AT [facility] STATED TO CALL THE AMBULANCE AND SEND THE PATIENT TO [facility] TH[facility] BY 3PM MED RESPONSE CALLED PATIENT AWARE AND ASSISTED WITH THE MRI QUESTIONAIRE CHECK LIST.
--- NOTE | 2017-03-18 13:02 | NUR ---
TOO CLOSE TO GIVE NEURONTIN WAS GIVEN TO THE PATIENT ABOUT 90 MINUTES AGO
[2017-03-18 13:17] VITALS: BP 98/55
--- NOTE | 2017-03-18 14:23 | NUR ---
SEEN BY SEVERIANO WILLIAM WITH NEW ORDERS AND NOTED.
--- NOTE | 2017-03-18 14:45 | NUR ---
PATIENT PICKED UP BY MED RESPONSE TO MRI ORDERED PATIENT WAS GIVEN DILAUDID ORDERED BEFORE SHE WAS PICKED UP.
--- NOTE | 2017-03-18 16:39 | NUR ---
PATIENT RETURNED FROM MRI DR SAMAYOA HERE TO SEE PATIENT AWAITING FOR ORDERS.
[2017-03-18 17:11] VITALS: BP 106/67
[2017-03-18 17:28] LABS: *BILIRUBIN,URIN NEGATIVE (NEGATIVE); *BLOOD, URINE NEGATIVE (NEGATIVE); *CLARITY,URINE CLEAR (CLEAR); *COLOR,URINE YELLOW (YELLOW); *KETONES,URINE 2+ (NEGATIVE); *PROTEIN,URINE 2+ (NEGATIVE); *UROBILINOGEN,URINE 0.2 E.U./dl (NORMAL); LEUKOCYTE ESTERASE ,URINE NEGATIVE (NEGATIVE); NITRITE, URINE NEGATIVE (NEGATIVE); UGLUCOSE NEGATIVE (NEGATIVE)
[2017-03-18 17:51] LABS: MUCUS,URINE FEW /LPF (0-FEW); SQUAMOUS EPITHELIAL CELL,UR FEW /HPF (NONE SEEN); WBC,URINE 0-3 /HPF (0-3)
--- NOTE | 2017-03-18 18:00 | NUR ---
RESTING MORE COMFORTABLY WATCHING TV AT THIS TIME AND WILL CONTINUE TO OBSERVE.
--- NOTE | 2017-03-18 19:25 | NUR ---
PT RECEIVED IN BED, AWAKE. ABLE TO MAKE NEEDS KNOWN. SON AT BEDSIDE. V/S STABLE. NO SIGNS OF ACUTE DISTRESS. NO COMPLAINTS OF PAIN AT THIS TIME. SAFETY MEASURE IMPLEMENTED. CALL LIGHT WITHIN REACH. WILL CONTINUE TO MONITOR.
[2017-03-18 20:00] VITALS: BP 99/56
[2017-03-18] MEDS: DOCUSATE SODIUM 250 MG CAPSULE PO SCH (20:06)
[2017-03-19] MEDS: KETOROLAC TROMETHAMINE 15 MG INJ IVP SCH ×2 (00:07→06:35)
[2017-03-19] MEDS: HYDROMORPHONE 1 MG/1 ML DISP.SYRIN IV PRN ×5 (05:31→23:57)
[2017-03-19 05:39] VITALS: BP 116/75
--- NOTE | 2017-03-19 06:04 | NUR ---
END OF SHIFT NOTES. PT SLEPT WELL THROUGHOUT SHIFT. V/S STABLE. NO SIGNS OF ACUTE DISTRESS. PAIN MEDICATIONS ADMINISTERED ORDERED. PT VERBALIZED PAIN RELIEF. NEEDS ATTENDED. SAFETY MAINTAINED. CALL LIGHT WITHIN REACH.
[2017-03-19] MEDS: PANTOPRAZOLE SODIUM 40 MG TABLET.DR PO SCH (06:35)
[2017-03-19] MEDS: LEVOTHYROXINE SODIUM 50 MCG TABLET PO SCH (06:35)
[2017-03-19 06:44] LABS: BASOPHILS % (AUTO) 0.1 % (0.0-2.0); EOSINOPHILS # (AUTO) 0.4 K/uL (0.0-0.7); EOSINOPHILS % (AUTO) 3.3 % (0.0-7.0); HEMATOCRIT 39.6 % (37-47); HEMOGLOBIN 13.1 G/DL (12.0-16.0); LYMPHOCYTES # (AUTO) 2.9 K/UL (0.8-4.8); MEAN CORPUSCULAR HEMOGLOBIN 33.5 UUG (27.0-31.0); MEAN CORPUSCULAR HGB CONC 33 g/dL (32.0-37.0); MEAN CORPUSCULAR VOLUME 100.8 FL (81.0-99.0); MONOCYTES # (AUTO) 1.3 K/UL (0.1-1.30); MONOCYTES % (AUTO) 9.8 % (0.0-11.0); NEUTROPHILS # (AUTO) 8.5 K/UL (1.8-8.9); NEUTROPHILS % (AUTO) 64.8 % (38.5-71.5); PLATELET COUNT (AUTO) 293 K/UL (150-450); RED BLOOD CELL COUNT(AUTO) 3.93 MIL/UL (4.2-5.4); WHITE BLOOD COUNT (AUTO) 13.1 K/UL (4.0-11.2)
[2017-03-19 06:47] LABS: CARBON DIOXIDE 31 mmol/L (21-32); CHLORIDE 103 mmol/L (98-107); CREATININE 1.7 mg/dL (0.6-1.3); GLUCOSE 112 mg/dL (74-106); MAGNESIUM 2.8 mg/dL (1.8-2.4); PHOSPHOROUS 4.3 mg/dL (2.5-4.9); POTASSIUM 4.5 mmol/L (3.5-5.1); UREA NITROGEN, BLOOD 37 mg/dL (7-18)
[2017-03-19 07:37] LABS: BAND % (MANUAL) 3 % (0-10); LYMPHOCYTES % (MANUAL) 29 % (20-40); MONOCYTES % (MANUAL) 10 % (2-10); NEUTROPHILS % (MANUAL) 58 % (42-75)
[2017-03-19] MEDS: AMIODARONE HCL 200 MG TABLET PO SCH (09:01)
[2017-03-19] MEDS: GABAPENTIN 100 MG CAPSULE PO SCH ×3 (09:01→18:31)
[2017-03-19] MEDS: METOPROLOL SUCCINATE XL 25 MG TAB.SR.24H PO SCH (09:02)
[2017-03-19] MEDS ORDERED: IV NS 1000 ML 1,000 ML IV PRN (09:30)
[2017-03-19] MEDS ORDERED: HYDROMORPHONE 2 MG/1 ML DISP.SYRIN IV ONE (10:15)
[2017-03-19 11:18] VITALS: BP 98/61
[2017-03-19 15:24] VITALS: BP 114/70
--- NOTE | 2017-03-19 15:59 | NUR ---
THIS RAMP BOSS SPOKE WITH GRACE AT [facility] [phone] KEY=[phone], STATES SHE WILL SEND SOMEONE OUT TO [employer] FOR A TLSO BRACE
[2017-03-19] MEDS: LIDOCAINE 5% PATCH TD SCH (18:31)
[2017-03-19 20:10] VITALS: BP 110/58
[2017-03-19] MEDS: DOCUSATE SODIUM 250 MG CAPSULE PO SCH (21:49)
[2017-03-20 04:47] VITALS: BP 93/54
--- NOTE | 2017-03-20 05:43 | NUR ---
PATIENT SLEPT WELL, PAIN MANAGEMENT ORDERED, EFFECTIVE. IVF RUNNING, NO INFILTRATION NOTED. TLSO BRACE AT BEDSIDE. CALL LIGHT WITHIN REACH, BED ALARM ON. WILL CONTINUE TO MONITOR.
[2017-03-20] MEDS: HYDROMORPHONE 1 MG/1 ML DISP.SYRIN IV PRN ×2 (06:00→10:36)
--- NOTE | 2017-03-20 06:00 | NUR ---
PT C/O OF ABDOMINAL PAIN. PT'S ABDOMEN DISTENDED, DIAPER DRY, NO URINE. BLADDER SCAN [phone]. CALLED MD, WAITING FOR CALL BACK.
[2017-03-20] MEDS: LEVOTHYROXINE SODIUM 50 MCG TABLET PO SCH (06:05)
[2017-03-20] MEDS: PANTOPRAZOLE SODIUM 40 MG TABLET.DR PO SCH (06:06)
[2017-03-20 06:37] LABS: EOSINOPHILS # (AUTO) 0.1 K/uL (0.0-0.7); HEMATOCRIT 38.8 % (37-47); HEMOGLOBIN 12.9 G/DL (12.0-16.0); LYMPHOCYTES # (AUTO) 1.2 K/UL (0.8-4.8); LYMPHOCYTES % (AUTO) 8.3 % (20.5-51.5); MEAN CORPUSCULAR HEMOGLOBIN 33.5 UUG (27.0-31.0); MEAN CORPUSCULAR HGB CONC 33 g/dL (32.0-37.0); MEAN CORPUSCULAR VOLUME 100.9 FL (81.0-99.0); MONOCYTES # (AUTO) 1.1 K/UL (0.1-1.30); MONOCYTES % (AUTO) 7.8 % (0.0-11.0); NEUTROPHILS # (AUTO) 11.8 K/UL (1.8-8.9); NEUTROPHILS % (AUTO) 82.9 % (38.5-71.5); PLATELET COUNT (AUTO) 289 K/UL (150-450); RED BLOOD CELL COUNT(AUTO) 3.84 MIL/UL (4.2-5.4); WHITE BLOOD COUNT (AUTO) 14.2 K/UL (4.0-11.2)
[2017-03-20 06:46] LABS: ALANINE AMINOTRANSFERASE 26 U/L (14-59); ALKALINE PHOSPHATASE 90 U/L (50-136); ASPARTATE AMINOTRANSFERASE 18 U/L (15-37); BILIRUBIN,TOTAL 0.4 mg/dL (0.2-1.0); CARBON DIOXIDE 28 mmol/L (21-32); CHLORIDE 103 mmol/L (98-107); CREATINE KINASE, TOTAL 32 U/L (26-192); CREATININE 1.6 mg/dL (0.6-1.3); GLUCOSE 102 mg/dL (74-106); MAGNESIUM 3.5 mg/dL (1.8-2.4); PHOSPHOROUS 4.8 mg/dL (2.5-4.9); POTASSIUM 4.8 mmol/L (3.5-5.1); TOTAL PROTEIN, SERUM 6.2 g/dL (6.4-8.2); UREA NITROGEN, BLOOD 41 mg/dL (7-18)
--- NOTE | 2017-03-20 07:00 | NUR ---
CALLED X 2, NO CALL BACK RECEIVED. AZRA ALEJO PAGED .
--- NOTE | 2017-03-20 07:30 | NUR ---
ASSISTED PT ON THE COMMODE WITH GREASE MONKEY NATTIE. PT VOIDED AND HAD A BM. ENDORSED TO THE DAY SHIFT RN. Addendum: 03/20/17 at 0747 by RERE PATHAK RN STILL NO CALL BACK FROM , WILL ENDORSE TO DAY SHIFT RN.
--- NOTE | 2017-03-20 07:35 | NUR ---
PT IS SITTING IN BED COMFORTABLY. NO S/S OF RESPIRATORY DISTRESS NOTED. IV INTACT/PATENT. ALL SAFETY NEEDS ARE MET. PT HAS VOIDED, HAD BM
[2017-03-20] MEDS: HYDROCODONE/APAP 10-325 MG TABLET PO PRN (07:53)
[2017-03-20] MEDS: GABAPENTIN 100 MG CAPSULE PO SCH ×3 (08:13→16:22)
[2017-03-20] MEDS: METOPROLOL SUCCINATE XL 25 MG TAB.SR.24H PO SCH (08:13)
[2017-03-20] MEDS: AMIODARONE HCL 200 MG TABLET PO SCH (08:13)
[2017-03-20] MEDS: LIDOCAINE 5% PATCH TD SCH (08:13)
[2017-03-20 11:55] VITALS: BP 105/54
[2017-03-20] MEDS ORDERED: OXYCODONE HCL 5 MG TABLET PO PRN (14:00)
[2017-03-20 15:28] VITALS: BP 104/59
[2017-03-20] MEDS ORDERED: HYDROCODONE/APAP 10-325 MG TABLET PO PRN (15:45)
[2017-03-20] MEDS ORDERED: AMIO200T6 PO (16:03)
[2017-03-20] MEDS ORDERED: GABA-532 PO (16:03)
[2017-03-20] MEDS ORDERED: LIDO30AD10 TD ×2 (16:03→22:11)
[2017-03-20] MEDS ORDERED: LEVO50TA8 PO (16:03)
[2017-03-20] MEDS ORDERED: METO-302 PO (16:03)
[2017-03-20] MEDS ORDERED: ONDA4VIA30 IV (16:03)
[2017-03-20] MEDS ORDERED: OXYC5TAB3 PO (16:03)
[2017-03-20] MEDS ORDERED: PANT40TA2 PO (16:03)
[2017-03-20] MEDS ORDERED: DOCU250C14 PO (16:03)
[2017-03-20] MEDS ORDERED: HYDR1DIS2 IV (16:03)
[2017-03-20] MEDS ORDERED: HYDR-548 PO (16:03)
--- NOTE | 2017-03-20 19:29 | NUR ---
PT IS SLEEPING IN BED. NO S/S OF RESPIRATORY DISTRESS NOTED. NO PAIN NOTED. ATG ARCHITECT BY THE BEDSIDE. IV INTACT/PATENT.
[2017-03-20 20:00] VITALS: BP 140/70
--- NOTE | 2017-03-20 20:20 | NUR ---
DISCHARGED PATIENT TO RN IN ACUTE REHAB IN STABLE CONDITION. TRANSFERRED VIA WHEELCHAIR. ALL NEEDS MET. ABLE TO MAKE NEEDS KNOWN. ENDORSE TO RN INSTRUCTIONS HOW TO USE THE TLSO BACK BRACE.
[2017-03-20] MEDS ORDERED: MAGN30OR PO (22:11)
[2017-03-22 08:53] LABS: *CREATININE,URINE 124.9 mg/dL (30-125); *URINE TOTAL PROTEIN RANDOM 52.4 mg/dL (<150/24HR)
[2017-03-23 11:11] LABS: A/G RATIO 0.9 (0.7-1.7); ALBUMIN 2.8 g/dL (2.9-4.4); ALPHA-1-GLOBULIN 0.4 g/dL (0.0-0.4); ALPHA-2-GLOBULIN 0.8 g/dL (0.4-1.0); BETA GLOBULIN 1.1 g/dL (0.7-1.3); GAMMA GLOBULIN 0.8 g/dL (0.4-1.8); M-SPIKE Not Observed g/dL (Not Observed)
== END 2017-03-20 20:20 | disposition short-term general hospital (02) | DRG 542 ==
LOC: ER 09:02 → MED 12:01
DX: M84.48XA Pathological fracture, other site, initial encounter for fracture (principal); N17.0 Acute kidney failure with tubular necrosis; M48.06 Spinal stenosis, lumbar region; M54.40 Lumbago with sciatica, unspecified side; M43.16 Spondylolisthesis, lumbar region; M41.9 Scoliosis, unspecified; M25.78 Osteophyte, vertebrae; M19.90 Unspecified osteoarthritis, unspecified site; M06.9 Rheumatoid arthritis, unspecified; M54.17 Radiculopathy, lumbosacral region; M46.90 Unspecified inflammatory spondylopathy, site unspecified; W19.XXXA Unspecified fall, initial encounter; Y92.009 Unspecified place in unspecified non-institutional (private) residence as the place of occurrence of the external cause; I48.0 Paroxysmal atrial fibrillation; K59.00 Constipation, unspecified; K21.9 Gastro-esophageal reflux disease without esophagitis; J32.9 Chronic sinusitis, unspecified; Z85.3 Personal history of malignant neoplasm of breast; E03.9 Hypothyroidism, unspecified; H35.30 Unspecified macular degeneration; G47.00 Insomnia, unspecified; T38.7X5A Adverse effect of androgens and anabolic congeners, initial encounter; D72.829 Elevated white blood cell count, unspecified; Z90.81 Acquired absence of spleen; Z96.641 Presence of right artificial hip joint; Z96.659 Presence of unspecified artificial knee joint; Z91.81 History of falling; D75.89 Other specified diseases of blood and blood-forming organs; E53.8 Deficiency of other specified B group vitamins; X58.XXXA Exposure to other specified factors, initial encounter; Y93.9 Activity, unspecified; H91.90 Unspecified hearing loss, unspecified ear; M85.80 Other specified disorders of bone density and structure, unspecified site; Z79.01 Long term (current) use of anticoagulants; Z87.81 Personal history of (healed) traumatic fracture
CPT/HCPCS: 36415; 70030-TC; 71010; 72100; 72131; 72148; 72192; 76770; 83735; 83970; 84100; 84155; 84156; 84165; 84300; 84443; 85025; 85730; 87086; 93005; 93307; 97116; 97161; 97530; A4663; C1758; J1170; J1885; J2405; J2550; J7030

== ENCOUNTER 2017-03-20 20:41 | Inpatient (IN) | payer MEDICARE ==
[~2017-03-20] VITALS: Ht 162.6 cm; Wt 60.8 kg
--- NOTE | 2017-03-20 20:30 | NUR ---
PATIENT ADMITTED TO ROOM 104 FROM MED/SURG WITH DX OSTEOARTHRITIS LUMBAR SPINE VIA W/C ACCOMPANIED BY THE NURSE.PATIENT A O X 4, C/O LOW BACK PAIN 01/12. BREATHING UNLABORED. NO SOB. NO SKIN PROBLEMS NOTED. B/P 109/57 P64,O2 94% RA, T- 98.7. PATIENT AMBULATES WITH ASSITANCE. WILL CONTINUE TO MONITOR. SAFETY MEASURES OBSERVED.
[~2017-03-20 20:41] MED LIST changes: +AMIO200T6 PO; +DOCU250C14 PO; +GABA-532 PO; +HYDR-548 PO; +HYDR1DIS2 IV; +LIDO30AD10 TD; +METH4TAB16 PO; -METH4TAB3 PO; +ONDA4VIA30 IV; +OXYC5TAB3 PO; +PANT40TA2 PO
[2017-03-20 20:57] VITALS: BP 109/57
[2017-03-20] MEDS ORDERED: MAGN30OR PO (22:11)
[2017-03-20] MEDS ORDERED: LIDO30AD10 TD (22:11)
[2017-03-20] MEDS ORDERED: ONDANSETRON 4 MG/2 ML VIAL IV PRN (22:30)
--- NOTE | 2017-03-20 23:25 | NUR ---
PAGED SEVERIANO VILLALPANDO FRAUD PREVENTION ANALYST REGARDING CLARIFICATION OF RESTARTING IVF'S SHE HAS ORDERED.LEFT MESSAGE TO CALL ME BACK TO CLARIFY ORDER
--- NOTE | 2017-03-21 | NUR ---
IV FLUID NS@75CC /HR STARTED ORDERED.
[2017-03-21] MEDS: IV NS 1000 ML 1,000 ML IV PRN (00:58)
--- NOTE | 2017-03-21 01:30 | NUR ---
IV SITE ON THE RT A/C NOTED INFILTRATED . PATIENT REFUSED TO START NEW IV AT THIS TIME. SHE WOULD LIKE THE IV TO BE STARTED IN THE MORNING . ENCOURAGED PO FLUIDS
--- NOTE | 2017-03-21 06:00 | NUR ---
ALLOWED ME TO RESTART IV THIS MORNING. 22 G NEEDLE STARTED IN RIGHT WRIST WITH ONE ATTEMPT. GOOD BLOOD RETURN. NORMAL SALINE HUNG AT 75 ML.HR RESTARTED AND INFUSING WITHOUT SIGNS OF INFILTRATION OR PHLEBITIS. OOB TO BSC WITH ONE ASSIST. VOIDED AND HAD ONE BOWEL MOVEMENT.C/O SEVERE PAIN WITH THIS ACTIVITY OF GETTING OOB TO BSC. MEDICATED AFTER BACK TO BED.CALL LIGHT WITHIN REACH AAT. INSTRUCTED TO CALL RN IF PAIN IS NOT RELIEVED. PATIENT VERBALLY UNDERSTANDS.
[2017-03-21] MEDS: HYDROCODONE/APAP 10-325 MG TABLET PO PRN (06:17)
[2017-03-21] MEDS: PANTOPRAZOLE SODIUM 40 MG TABLET.DR PO SCH (06:17)
[2017-03-21] MEDS: LEVOTHYROXINE SODIUM 50 MCG TABLET PO SCH (06:17)
--- NOTE | 2017-03-21 06:17 | NUR ---
PROTONIX 40 MG, SYNTHROID 50 MCG PO AND NORCO 10/325 MG 1 TAB PO GIVEN
[2017-03-21] MEDS ORDERED: HYDROCODONE/APAP 10-325 MG TABLET ONE (06:24)
[2017-03-21] MEDS ORDERED: PANTOPRAZOLE SODIUM 40 MG TABLET.DR PO ONE (06:26)
[2017-03-21] MEDS ORDERED: LEVOTHYROXINE SODIUM 100 MCG TABLET ONE (06:27)
--- NOTE | 2017-03-21 07:16 | NUR ---
Patient received from security shift supervisor, resting comfortably in bed, in stable condition, no signs of acute distress noted. Respirations even and unlabored, VS WNL, O2 sat WNL on RA. No other verbalized needs at this time, all needs met. Safety and fall precautions maintained, call light within reach.
[2017-03-21 07:30] LABS: CARBON DIOXIDE 28 mmol/L (21-32); CHLORIDE 104 mmol/L (98-107); CREATININE 1.4 mg/dL (0.6-1.3); GLUCOSE 99 mg/dL (74-106); MAGNESIUM 2.5 mg/dL (1.8-2.4); PHOSPHOROUS 2.8 mg/dL (2.5-4.9); POTASSIUM 4.3 mmol/L (3.5-5.1); UREA NITROGEN, BLOOD 33 mg/dL (7-18)
[2017-03-21 07:48] LABS: EOSINOPHILS # (AUTO) 0.3 K/uL (0.0-0.7); EOSINOPHILS % (AUTO) 3.3 % (0.0-7.0); HEMOGLOBIN 12.1 G/DL (12.0-16.0); MEAN CORPUSCULAR HEMOGLOBIN 33.5 UUG (27.0-31.0); MEAN CORPUSCULAR HGB CONC 34 g/dL (32.0-37.0); MONOCYTES # (AUTO) 1.3 K/UL (0.1-1.30); MONOCYTES % (AUTO) 14.8 % (0.0-11.0); NEUTROPHILS # (AUTO) 5.3 K/UL (1.8-8.9); NEUTROPHILS % (AUTO) 59.9 % (38.5-71.5); PLATELET COUNT (AUTO) 267 K/UL (150-450)
[2017-03-21 07:57] LABS: WHITE BLOOD COUNT (AUTO) 8.9 K/UL (4.0-11.2)
[2017-03-21] MEDS: METOPROLOL SUCCINATE XL 25 MG TAB.SR.24H PO SCH (09:53)
[2017-03-21] MEDS: GABAPENTIN 100 MG CAPSULE PO SCH ×3 (09:53→16:58)
[2017-03-21] MEDS: AMIODARONE HCL 200 MG TABLET PO SCH (09:53)
[2017-03-21] MEDS: LIDOCAINE 5% PATCH TD SCH (09:54)
[2017-03-21] MEDS: HYDROMORPHONE 1 MG/1 ML DISP.SYRIN IV PRN ×4 (10:05→20:37)
[2017-03-21 12:02] VITALS: BP 135/54
[2017-03-21 15:03] LABS: *BILIRUBIN,URIN NEGATIVE (NEGATIVE); *BLOOD, URINE Trace-intact (NEGATIVE); *COLOR,URINE YELLOW (YELLOW); *KETONES,URINE NEGATIVE (NEGATIVE); *PROTEIN,URINE 1+ (NEGATIVE); *UROBILINOGEN,URINE 0.2 E.U./dl (NORMAL); LEUKOCYTE ESTERASE ,URINE 1+ (NEGATIVE); NITRITE, URINE NEGATIVE (NEGATIVE); PH,URINE 6.5 (5.0-8.0); UGLUCOSE NEGATIVE (NEGATIVE)
[2017-03-21 16:36] LABS: *CLARITY,URINE SLIGHTLY HAZY (CLEAR)
[2017-03-21 16:37] LABS: BACTERIA,URINE FEW /HPF (NONE SEEN); MUCUS,URINE FEW /LPF (0-FEW); SQUAMOUS EPITHELIAL CELL,UR FEW /HPF (NONE SEEN)
[2017-03-21] MEDS: DOCUSATE SODIUM 250 MG CAPSULE PO SCH (20:35)
[2017-03-21 20:37] VITALS: BP 139/76
[2017-03-22] MEDS: HYDROMORPHONE 1 MG/1 ML DISP.SYRIN IV PRN ×4 (02:25→16:34)
[2017-03-22] MEDS: IV NS 1000 ML 1,000 ML IV PRN (02:28)
--- NOTE | 2017-03-22 05:54 | NUR ---
Patient awake and verbally responsive. Patient stated she slept fairly well throughout the night. Able to make needs known. C/o pain of in the right buttocks and both lower extremities. Pain level of 7/10. Dilaudid 1mg IV as ordered. Tolerated well. IV site patent and intact. No s/s of infiltration or swelling. NS @ 75ml running continuously. Assisted to bedside commode. All needs attended to promptly. Call light within reach. Will continue to monitor.
[2017-03-22] MEDS: LEVOTHYROXINE SODIUM 50 MCG TABLET PO SCH (06:00)
[2017-03-22] MEDS: PANTOPRAZOLE SODIUM 40 MG TABLET.DR PO SCH (06:00)
[2017-03-22 08:29] VITALS: BP 137/75
[2017-03-22] MEDS: GABAPENTIN 100 MG CAPSULE PO SCH ×3 (10:52→18:34)
[2017-03-22] MEDS: METOPROLOL SUCCINATE XL 25 MG TAB.SR.24H PO SCH (10:52)
[2017-03-22] MEDS: AMIODARONE HCL 200 MG TABLET PO SCH (10:52)
[2017-03-22] MEDS: LIDOCAINE 5% PATCH TD SCH (11:01)
[2017-03-22 20:01] VITALS: BP 125/63
[2017-03-22] MEDS: DOCUSATE SODIUM 250 MG CAPSULE PO SCH (22:51)
[2017-03-23] MEDS: HYDROCODONE/APAP 10-325 MG TABLET PO PRN (01:33)
[2017-03-23] MEDS: HYDROMORPHONE 1 MG/1 ML DISP.SYRIN IV PRN ×5 (03:18→22:32)
[2017-03-23] MEDS: IV NS 1000 ML 1,000 ML IV PRN (03:57)
[2017-03-23] MEDS: LEVOTHYROXINE SODIUM 50 MCG TABLET PO SCH (06:41)
[2017-03-23] MEDS: PANTOPRAZOLE SODIUM 40 MG TABLET.DR PO SCH (06:41)
[2017-03-23 08:00] VITALS: BP 137/80
[2017-03-23] MEDS: LIDOCAINE 5% PATCH TD SCH (08:14)
[2017-03-23] MEDS: GABAPENTIN 100 MG CAPSULE PO SCH ×3 (08:15→17:44)
--- NOTE | 2017-03-23 08:20 | NUR ---
Received patient awake. Patient complains of pain rated as 10/10 over lower back, buttocks, and legs. PRN medications given. Assisted patient to chair. Back brace applied.
[2017-03-23] MEDS: AMIODARONE HCL 200 MG TABLET PO SCH (08:21)
[2017-03-23] MEDS: METOPROLOL SUCCINATE XL 25 MG TAB.SR.24H PO SCH (08:22)
--- NOTE | 2017-03-23 10:54 | NUR ---
Back brace off. Assisted patient back to bed. Improvement of pain of 6/10
--- NOTE | 2017-03-23 13:00 | NUR ---
PATIENT COMPLAINED OF SACRAL PAIN RADIATING TO RIGHT LEG RATED 10/10. PRN PAIN MEDICATION GIVEN
--- NOTE | 2017-03-23 16:23 | NUR ---
Power Nut Runner Operator: SW met with patient at bedside to assess needs and provide support. Pt is an 87-year-old female admitted to ARU functional and mobility impairment. Upon social organization professor interview, pt appeared pleasant and cooperative with a happy affect. Pt began interview by stating "I am a vibrant 87-year-old woman." Pt then reported reason for admission and stated she had a fall in December. Per pt, this occurred while she was washing in her laundry room. Pt stated she had visited the ER 4x and was only prescribed medications, and then discharged back home. Pt reported she is now feeling "better" and is being seen by pain management. Per pt, prior to admission into ARU she was experiencing extreme pain due to her fall. She stated she lives alone and has always been independent. She verbalized feeling "embarassed" that she had fallen due to her never having a hx of falls. Per pt, she does not have a caregiver and has a very involved/supportive family. Pt reported she has three sons, and one daughter. Additionally, she reports that she was involved in various community resources prior to fall. Pt's stated her goal is to "get better" and return home to her "dogs." Per pt, she is completing physical therapy and will continue to comply. Pt is planning to return home once she completes rehab. Pt is enthusiastic and motivated to complete rehabilitation. SW provided supportive counseling to address patients issues of loss related to her recent fall.SW will continue to address issues of loss related to recent hospitalization. SW will encourage compliance with rehab goals.
--- NOTE | 2017-03-23 19:30 | NUR ---
Received patient watching TV. No s/s of distress, repirations even and unlabored. Verbalizes a little pain. Will provide interventions. Call light within reach. Reminded to call for help whenever necessary. Will continue to monitor.
--- NOTE | 2017-03-23 20:15 | NUR ---
new bag of NS 1000ml started at 75cc/hr. IV site checked for patency. IVF infusing well
[2017-03-23 20:34] VITALS: BP 128/74
[2017-03-23] MEDS: DOCUSATE SODIUM 250 MG CAPSULE PO SCH (20:58)
[2017-03-24] MEDS: IV NS 1000 ML 1,000 ML IV PRN (00:11)
[2017-03-24] MEDS: HYDROMORPHONE 1 MG/1 ML DISP.SYRIN IV PRN ×5 (02:37→20:48)
[2017-03-24 06:53] LABS: BASOPHILS % (AUTO) 0.3 % (0.0-2.0); EOSINOPHILS # (AUTO) 0.2 K/uL (0.0-0.7); EOSINOPHILS % (AUTO) 2.1 % (0.0-7.0); HEMATOCRIT 33.4 % (37-47); HEMOGLOBIN 11.2 G/DL (12.0-16.0); LYMPHOCYTES # (AUTO) 1.8 K/UL (0.8-4.8); MEAN CORPUSCULAR HGB CONC 33 g/dL (32.0-37.0); MEAN CORPUSCULAR VOLUME 98.9 FL (81.0-99.0); MONOCYTES # (AUTO) 1.4 K/UL (0.1-1.30); NEUTROPHILS # (AUTO) 4.9 K/UL (1.8-8.9); NEUTROPHILS % (AUTO) 58.6 % (38.5-71.5); PLATELET COUNT (AUTO) 323 K/UL (150-450); RED BLOOD CELL COUNT(AUTO) 3.38 MIL/UL (4.2-5.4); WHITE BLOOD COUNT (AUTO) 8.3 K/UL (4.0-11.2)
--- NOTE | 2017-03-24 07:04 | NUR ---
Patient resting in bed with no s/s of acute distress. Verbalized little relief from pain meds. Comfort measures provided. Due meds given. Needs attended. Supervised during ambulation. IVF infusing well; IV site patent, shows no sign of infiltration. Call light kept within reach. Frequent checks done. Endorsed accordingly.
[2017-03-24] MEDS: LEVOTHYROXINE SODIUM 50 MCG TABLET PO SCH (07:09)
[2017-03-24] MEDS: PANTOPRAZOLE SODIUM 40 MG TABLET.DR PO SCH (07:09)
[2017-03-24 08:00] VITALS: BP 151/87
[2017-03-24 08:04] LABS: CARBON DIOXIDE 26 mmol/L (21-32); CHLORIDE 105 mmol/L (98-107); CREATININE 1.1 mg/dL (0.6-1.3); GLUCOSE 91 mg/dL (74-106); MAGNESIUM 1.5 mg/dL (1.8-2.4); PHOSPHOROUS 2.5 mg/dL (2.5-4.9); POTASSIUM 3.7 mmol/L (3.5-5.1); UREA NITROGEN, BLOOD 11 mg/dL (7-18)
[2017-03-24] MEDS: OXYCODONE HCL 5 MG TABLET PO PRN ×16 (08:21→17:22)
[2017-03-24] MEDS: GABAPENTIN 100 MG CAPSULE PO SCH ×3 (09:48→17:41)
[2017-03-24] MEDS: AMIODARONE HCL 200 MG TABLET PO SCH (09:48)
[2017-03-24] MEDS: METOPROLOL SUCCINATE XL 25 MG TAB.SR.24H PO SCH (09:48)
[2017-03-24] MEDS: LIDOCAINE 5% PATCH TD SCH (09:49)
[2017-03-24 09:52] LABS: BAND % (MANUAL) 4 % (0-10); EOSINOPHILS % (MANUAL) 3 % (0-8); LYMPHOCYTES % (MANUAL) 19 % (20-40); MONOCYTES % (MANUAL) 18 % (2-10); NEUTROPHILS % (MANUAL) 56 % (42-75)
[2017-03-24] MEDS ORDERED: MAGNESIUM OXIDE 400 MG TABLET PO ONE (13:00)
[2017-03-24] MEDS: CARVEDILOL 6.25 MG TABLET PO SCH (17:41)
--- NOTE | 2017-03-24 17:59 | NUR ---
Patient is alert and oriented x4. Patient complains of pain to left side of the body, mainly the left hip and left lower extremities (10/10). Patient given pain medications per MD orders. Effective. Patient states that it gets better after pain medications given. Sometimes, patient falls asleep and rests. No adverse effect noted. Patient is able to ambulate with walker, with one person assist. Patient made comfortable in bed, after PT. Patient for L5 transforminal epidural steroid injection on (03/26/2017 at 10:15am-verified with OR), to be picked up by 9:50am (to be done by Dr. Bingham). Patient to be NPO post mid-night prior to injection. Will endore to next shift. Will continue to monitor patient. Call light and phone within reach.
--- NOTE | 2017-03-24 19:30 | NUR ---
RECEIVED PATIENT IN BED IN NAD AT PRESENT. RESPIRATIONS EVEN, DEEP AND WITHOUT C/O SOB.PATIENT HAS A HX OF CHRONIC PAIN BUT PAIN IS AT A COMFORTABLE AND MANAGEABLE LEVEL AT PRESENT.ABLE TO REST ON AND OFF AT SHORT INTERVALS.REFUSES PM SNACK. PM CARE DONE. REPOSITIONED TO SIDE WITH MINIMAL ASSISTANCE. SKIN INTEGRITY INTACT.IV IN RIGHT FOREARM IS PATENT, WITH GOOD BLOOD RETURN AND NO SIGNS OF INFILTRATION AND/ OR PHLEBITIS.IV NORMAL SALINE INFUSING AT 75 ML/HR.INSTRUCTED TO CALL RN WITH ALL REQUESTS, NEEDS OR NECESSITY TO GET OOB.PATIENT VERBALIZES GOOD UNDERSTANDING.CALL LIGHT WITHIN REACH AAT. BED ALARM ON.
[2017-03-24] MEDS: DOCUSATE SODIUM 250 MG CAPSULE PO SCH ×3 (20:48→20:59)
[2017-03-24 21:01] VITALS: BP 125/75
[2017-03-25] MEDS: HYDROMORPHONE 1 MG/1 ML DISP.SYRIN IV PRN ×4 (01:42→23:02)
[2017-03-25] MEDS: IV NS 1000 ML 1,000 ML IV PRN ×2 (02:54→23:02)
--- NOTE | 2017-03-25 06:00 | NUR ---
SLEPT WELL WITH MANAGEABLE PAIN OF 4/10 AFTER DILAUDID IV WAS GIVEN. TOOK DILAUDID 3X TONIGHT. IVF'S INFUSING IN RIGHT FOREARM WITHOUT SIGNS OF INFILTRATION OR PHLEBITIS. OOB TO TOILET X 3 WITH ASSIST OF WALKER AND STEADYING BY ONE EXHAUST AND MUFFLER FITTER.IN NAD AT THIS TIME. CALL LIGHT WITHIN REACH
[2017-03-25] MEDS: PANTOPRAZOLE SODIUM 40 MG TABLET.DR PO SCH (06:15)
[2017-03-25] MEDS: LEVOTHYROXINE SODIUM 50 MCG TABLET PO SCH (06:15)
[2017-03-25 08:00] VITALS: BP 141/78
--- NOTE | 2017-03-25 08:30 | NUR ---
PT.A/A/OX4 EATING LUNCH,NO S/S OF ACUTE DISTRESS,C/O ON GENER.PAIN WICH WAS NOT RELIVED BY PRIOR PAIN MED.PT.WAS MEDICATED WITH OXYIR.
[2017-03-25] MEDS: OXYCODONE HCL 5 MG TABLET PO PRN ×2 (08:39→16:31)
[2017-03-25] MEDS: LIDOCAINE 5% PATCH TD SCH (08:39)
[2017-03-25] MEDS: AMIODARONE HCL 200 MG TABLET PO SCH (08:41)
[2017-03-25] MEDS: ASPIRIN EC 325 MG TABLET.DR PO SCH (08:41)
[2017-03-25] MEDS: GABAPENTIN 100 MG CAPSULE PO SCH ×3 (08:41→16:28)
[2017-03-25] MEDS: CARVEDILOL 6.25 MG TABLET PO SCH ×2 (08:42→16:30)
--- NOTE | 2017-03-25 14:23 | NUR ---
FAMILY MEMBERS AT BEDSIDE,UPDATED WITH PT.PLAN OF CARE,NO CHANGES IN PT.CONDITION.
--- NOTE | 2017-03-25 14:29 | NUR ---
TEAM CONFERENCE MEETING 03/25/17
[2017-03-25] MEDS: CARVEDILOL 12.5 MG TABLET PO SCH (16:46)
--- NOTE | 2017-03-25 17:30 | NUR ---
PT.WAS SEEN BY , UPDATED WITH PT.CONDITION AND PLAN OF CARE.
[2017-03-25] MEDS ORDERED: PATIENT MAY USE OWN MED- MD OK SQ ONE (17:45)
--- NOTE | 2017-03-25 18:43 | NUR ---
PT.WATCHING TV NO S/S OF ACUTE DISTRESS OR PAIN NOTED.
[2017-03-25] MEDS: DOCUSATE SODIUM 250 MG CAPSULE PO SCH (21:00)
[2017-03-25] MEDS: MAGNESIUM OXIDE 400 MG TABLET PO SCH (21:11)
[2017-03-25 21:34] VITALS: BP 118/68
--- NOTE | 2017-03-26 05:25 | NUR ---
PT SLEEPING; NAD NOTED; PRE-OP CHECK LIST COMPLETED
[2017-03-26] MEDS: PANTOPRAZOLE SODIUM 40 MG TABLET.DR PO SCH (06:46)
[2017-03-26] MEDS: LEVOTHYROXINE SODIUM 50 MCG TABLET PO SCH (06:47)
[2017-03-26] MEDS: OXYCODONE HCL 5 MG TABLET PO PRN (06:48)
--- NOTE | 2017-03-26 08:00 | NUR ---
RECEIVED PATIENT AWAKE IN BED, ALERT AND ORIENTED. WITH COMPLAINTS OF BACK AND LEG PAIN RATED 5/10. NO OTHER S/S OF DISTRESS. FOR BILATERAL L5 TRANSFORMINAL EPIDURAL STEROID INJECTION AT 09:45. CONSENT SIGNED BY PATIENT.
[2017-03-26] MEDS: LIDOCAINE 5% PATCH TD SCH (08:08)
[2017-03-26] MEDS: ASPIRIN EC 325 MG TABLET.DR PO SCH (08:15)
[2017-03-26] MEDS: CARVEDILOL 12.5 MG TABLET PO SCH ×2 (08:16→17:21)
[2017-03-26] MEDS: AMIODARONE HCL 200 MG TABLET PO SCH (08:16)
[2017-03-26] MEDS: GABAPENTIN 100 MG CAPSULE PO SCH ×3 (08:18→17:20)
[2017-03-26 08:44] VITALS: BP 135/78
--- NOTE | 2017-03-26 09:43 | NUR ---
PATIENT TRANSPORTED TO OR ACCOMPANIED BY OR STAFF VIA HOSPITAL BED. PRE-OP CHECK LIST, COMPLETED. MAINTAINED NPO STATUS SINCE 03/25 18:00. WITH IV SALINE LOCK OVER RIGHT WRIST.
[2017-03-26] MEDS ORDERED: MIDAZOLAM HCL 2 MG/2 ML VIAL ONE (10:13)
[2017-03-26] MEDS ORDERED: FENTANYL CITRATE 100 MCG/2 ML AMPUL ONE (10:13)
--- NOTE | 2017-03-26 11:45 | NUR ---
Back from OR S/P lumbar Epidural Steroid injection under fluoroscopy, accompanied by MAGNETIC GRINDER OPERATOR via hospital bed. Report received from OR nurse, to continue previous diet and continue previous medications. Patient is alert and oriented x4. No s/s of distress. Still with pain over right hip rated as 7/10.
[2017-03-26] MEDS: IV NS 1000 ML 1,000 ML IV PRN (14:04)
--- NOTE | 2017-03-26 17:33 | NUR ---
PATIENT AWAKE AND ORIENTED. SITTING IN BED. TOLERATED DINNER WELL. NO COMPLAINTS OF PAIN OR DISCOMFORT AT THE MOMENT.
--- NOTE | 2017-03-26 19:30 | NUR ---
Received patient sleeping, no s/s of distress. Respirations even and unlabored. Call light within reach. Will continue to monitor.
[2017-03-26] MEDS: DOCUSATE SODIUM 250 MG CAPSULE PO SCH (21:00)
[2017-03-26] MEDS: MAGNESIUM OXIDE 400 MG TABLET PO SCH (21:39)
[2017-03-26 21:42] VITALS: BP 114/64
[2017-03-27] MEDS: PANTOPRAZOLE SODIUM 40 MG TABLET.DR PO SCH (06:16)
[2017-03-27] MEDS: LEVOTHYROXINE SODIUM 50 MCG TABLET PO SCH (06:16)
--- NOTE | 2017-03-27 07:09 | NUR ---
Patient resting in bed, no s/s of distress. No complaints of pain during the shift. Call light kept within reach. Due meds given. Needs attended. Kept clean and comfortable. Frequent checks done. Refused Protonix and Synthroid this AM despite health teaching. Irritable when offered said meds, saying "No, I don't want those meds! What do I need them for?" Requested that she not be given any stool softener due to episodes of LBM last night. Endorsed accordingly.
--- NOTE | 2017-03-27 08:00 | NUR ---
NSG: RECEIVED PATIENT ALERT IN AWAKE AND ORIENTED LAYING IN BED. NO C/O PAIN OR DISCOMFORT THIS TIME.
[2017-03-27] MEDS: CARVEDILOL 12.5 MG TABLET PO SCH ×2 (08:09→17:11)
--- NOTE | 2017-03-27 08:15 | NUR ---
NSG: Received patient laying in bed. left arm iv infiltrated noted , left lower arm noted swollen. ivf stopped. charge nurse vika made aware. elevated arm on pillow. Dr mccartney left message. waiting for responds.
--- NOTE | 2017-03-27 08:30 | NUR ---
ivhl removed due to infiltration.
[2017-03-27] MEDS: GABAPENTIN 100 MG CAPSULE PO SCH ×3 (08:58→16:28)
[2017-03-27] MEDS: ASPIRIN EC 325 MG TABLET.DR PO SCH (08:58)
[2017-03-27] MEDS: AMIODARONE HCL 200 MG TABLET PO SCH (08:58)
[2017-03-27] MEDS: LIDOCAINE 5% PATCH TD SCH (09:00)
--- NOTE | 2017-03-27 11:15 | NUR ---
NSG: IVF D/C VIA .
[2017-03-27 11:16] VITALS: BP 122/73
[2017-03-27] MEDS: OXYCODONE HCL 5 MG TABLET PO PRN ×2 (13:32→23:11)
--- NOTE | 2017-03-27 13:32 | NUR ---
nsg: patient c/o gen: pain. oxyir 10 mg po given per patient rquested.
--- NOTE | 2017-03-27 14:32 | NUR ---
NSG: PATIENT STATED I AM FEELING BETTER NOW. PRN EFFECTIVE.
--- NOTE | 2017-03-27 18:00 | NUR ---
NSG:offered to place new ivhl. Patient refused . stated i don't want ivhl. charge nurse made aware.
--- NOTE | 2017-03-27 18:08 | NUR ---
NSG: PATIENT RESTING IN BED COMFORTABLY. FAMILY MEMBER @ BEDSIDE.NO C/O PAIN OR DISCOMFORT THIS TIME. CONTINUE PLAN OF CARE.
[2017-03-27] MEDS: MAGNESIUM OXIDE 400 MG TABLET PO SCH (21:00)
[2017-03-27] MEDS: DOCUSATE SODIUM 250 MG CAPSULE PO SCH (21:00)
[2017-03-27 21:33] VITALS: BP 122/74
--- NOTE | 2017-03-28 01:50 | NUR ---
RN NOTES: BLOOD SUGAR IS 62 MG/DL. ORANGE JUICE AND APPLE SAUCE ARE GIVEN TO THE PATIENT. WILL CONTINUE TO MONITOR, AND FOLLOW UP.
[2017-03-28] MEDS: PANTOPRAZOLE SODIUM 40 MG TABLET.DR PO SCH (06:34)
[2017-03-28] MEDS: LEVOTHYROXINE SODIUM 50 MCG TABLET PO SCH (06:34)
[2017-03-28] MEDS: LIDOCAINE 5% PATCH TD SCH (08:34)
[2017-03-28] MEDS: ASPIRIN EC 325 MG TABLET.DR PO SCH (08:34)
[2017-03-28] MEDS: GABAPENTIN 100 MG CAPSULE PO SCH ×3 (08:37→17:25)
[2017-03-28] MEDS: AMIODARONE HCL 200 MG TABLET PO SCH (08:37)
[2017-03-28] MEDS: CARVEDILOL 12.5 MG TABLET PO SCH ×2 (08:38→18:09)
[2017-03-28] MEDS: OXYCODONE HCL 5 MG TABLET PO PRN ×2 (09:21→14:00)
[2017-03-28 10:14] VITALS: BP 132/72
--- NOTE | 2017-03-28 18:42 | NUR ---
Patient has been pleasant and conversant all day. Pre medicated twice for physical therapy. Walked with P/T wearing uper body brace and using FWW. Upon completing therapy, remained in chair for most of afternoon. Tolerating diet well. Patient requested I endorse to manager night to hold Colace tonight. Right arm redness and edema much improved, S/P hot packs 3 times today as per MD's orders. No resp distress noted.Denies pain/discomfort at this time.
[2017-03-28] MEDS: DOCUSATE SODIUM 250 MG CAPSULE PO SCH (21:00)
[2017-03-28] MEDS: MAGNESIUM OXIDE 400 MG TABLET PO SCH (21:08)
[2017-03-28] MEDS: ZOLPIDEM 5 MG TABLET PO PRN (21:09)
[2017-03-28 21:15] VITALS: BP 114/61
--- NOTE | 2017-03-28 21:43 | NUR ---
Patient refused colace for today.
[2017-03-29] MEDS: OXYCODONE HCL 5 MG TABLET PO PRN ×4 (06:27→17:51)
[2017-03-29] MEDS: LEVOTHYROXINE SODIUM 50 MCG TABLET PO SCH (06:27)
--- NOTE | 2017-03-29 06:42 | NUR ---
Patient slept well all night, did complain of pain this morning and medication was administered as needed. Assisted patient to the restroom. Has call light within reach.
[2017-03-29 08:00] VITALS: BP 144/81
[2017-03-29] MEDS: GABAPENTIN 100 MG CAPSULE PO SCH ×3 (08:47→17:49)
[2017-03-29] MEDS: ASPIRIN EC 325 MG TABLET.DR PO SCH (08:47)
[2017-03-29] MEDS: PANTOPRAZOLE SODIUM 40 MG TABLET.DR PO SCH (08:47)
[2017-03-29] MEDS: LIDOCAINE 5% PATCH TD SCH (08:49)
[2017-03-29] MEDS: AMIODARONE HCL 200 MG TABLET PO SCH (08:49)
[2017-03-29] MEDS: CARVEDILOL 12.5 MG TABLET PO SCH ×2 (09:30→17:50)
[2017-03-29 14:35] VITALS: BP 144/81
[2017-03-29 20:24] VITALS: BP 131/72
[2017-03-29] MEDS: MAGNESIUM OXIDE 400 MG TABLET PO SCH (20:25)
[2017-03-29] MEDS: ZOLPIDEM 5 MG TABLET PO PRN (20:25)
[2017-03-29] MEDS: DOCUSATE SODIUM 250 MG CAPSULE PO SCH (20:28)
--- NOTE | 2017-03-29 20:29 | NUR ---
Patient alert and oriented and refusing colace.
[2017-03-30] MEDS: PANTOPRAZOLE SODIUM 40 MG TABLET.DR PO SCH (06:26)
[2017-03-30] MEDS: LEVOTHYROXINE SODIUM 50 MCG TABLET PO SCH (06:26)
--- NOTE | 2017-03-30 06:30 | NUR ---
patient alert and oriented and verbally able to let needs known. Slept well after ambien was given. Denies any pain or discomfort at this time. Denies any respiratory distress. Laying comfortably in bed. Has call light within reach, all needs attended to.
[2017-03-30 07:30] LABS: BASOPHILS # (AUTO) 0.1 K/uL (0.0-8.0); BASOPHILS % (AUTO) 0.7 % (0.0-2.0); EOSINOPHILS # (AUTO) 0.2 K/uL (0.0-0.7); EOSINOPHILS % (AUTO) 1.8 % (0.0-7.0); HEMATOCRIT 34.7 % (37-47); HEMOGLOBIN 11.5 G/DL (12.0-16.0); LYMPHOCYTES % (AUTO) 24.3 % (20.5-51.5); MEAN CORPUSCULAR HEMOGLOBIN 33.1 UUG (27.0-31.0); MEAN CORPUSCULAR HGB CONC 33 g/dL (32.0-37.0); MEAN CORPUSCULAR VOLUME 99.4 FL (81.0-99.0); MONOCYTES # (AUTO) 1.8 K/UL (0.1-1.30); MONOCYTES % (AUTO) 14.9 % (0.0-11.0); NEUTROPHILS # (AUTO) 7.2 K/UL (1.8-8.9); NEUTROPHILS % (AUTO) 58.3 % (38.5-71.5); PLATELET COUNT (AUTO) 509 K/UL (150-450); RED BLOOD CELL COUNT(AUTO) 3.49 MIL/UL (4.2-5.4); WHITE BLOOD COUNT (AUTO) 12.3 K/UL (4.0-11.2)
[2017-03-30 07:44] LABS: ALANINE AMINOTRANSFERASE 17 U/L (14-59); ALKALINE PHOSPHATASE 106 U/L (50-136); ASPARTATE AMINOTRANSFERASE 20 U/L (15-37); BILIRUBIN,TOTAL 0.5 mg/dL (0.2-1.0); CARBON DIOXIDE 30 mmol/L (21-32); CHLORIDE 102 mmol/L (98-107); CREATININE 1.1 mg/dL (0.6-1.3); GLUCOSE 90 mg/dL (74-106); MAGNESIUM 2.1 mg/dL (1.8-2.4); PHOSPHOROUS 3.4 mg/dL (2.5-4.9); POTASSIUM 3.8 mmol/L (3.5-5.1); TOTAL PROTEIN, SERUM 6.1 g/dL (6.4-8.2); UREA NITROGEN, BLOOD 17 mg/dL (7-18)
[2017-03-30 08:00] VITALS: BP 122/67
--- NOTE | 2017-03-30 08:00 | NUR ---
NSG: RECEIVED PATIENT ALERT IN AWAKE AND ORIENTED LAYING IN BED. NO C/O PAIN OR DISCOMFORT THIS TIME.
[2017-03-30] MEDS: ASPIRIN EC 325 MG TABLET.DR PO SCH (08:12)
[2017-03-30] MEDS: GABAPENTIN 100 MG CAPSULE PO SCH ×3 (08:12→17:05)
[2017-03-30] MEDS: CARVEDILOL 12.5 MG TABLET PO SCH ×2 (08:12→17:58)
[2017-03-30] MEDS: OXYCODONE HCL 5 MG TABLET PO PRN ×2 (08:12→15:08)
[2017-03-30] MEDS: AMIODARONE HCL 200 MG TABLET PO SCH (08:13)
--- NOTE | 2017-03-30 08:14 | NUR ---
nsg: patient c/o gen: pain. oxy ir 10 mg po given per patient requested.
[2017-03-30] MEDS: LIDOCAINE 5% PATCH TD SCH (08:52)
--- NOTE | 2017-03-30 09:15 | NUR ---
nsg: patient stated i am feeling better now. prn effective.
--- NOTE | 2017-03-30 15:10 | NUR ---
report received from ronan garnett @1500. pt asked for pain med. dr mccartney recommended a dose of pain med. med provided. will follow up to reassess effect of drug.
--- NOTE | 2017-03-30 18:04 | NUR ---
pt had low blodd pressures 95/54 hr 67. carvidelol not given. pt asymptomatic. will continue to monitor.
[2017-03-30 20:00] VITALS: BP 107/59
[2017-03-30] MEDS: ZOLPIDEM 5 MG TABLET PO PRN (20:45)
[2017-03-30] MEDS: MAGNESIUM OXIDE 400 MG TABLET PO SCH (20:47)
[2017-03-30] MEDS: DOCUSATE SODIUM 250 MG CAPSULE PO SCH (20:47)
[2017-03-31] MEDS: OXYCODONE HCL 5 MG TABLET PO PRN ×3 (03:23→23:52)
--- NOTE | 2017-03-31 05:20 | NUR ---
WAS GIVEN AMBIEN LAST NIGHT REQUESTED, SLEPT AFTERWARDS. ALSO C/O LEFT HIP AND LEG PAIN, WAS GIVEN OXYIR REQUESTED AND PRESCRIBED. NO FURTHER C/O PAIN AT THIS TIME. PT USED WALKER TO GO BATHROOM. SAFETY MAINTAINED THROUGHOUT SHIFT. CALL LIGHT WITHIN REACH.
[2017-03-31] MEDS: HYDROCODONE/APAP 10-325 MG TABLET PO PRN ×4 (06:23→21:20)
[2017-03-31] MEDS: LEVOTHYROXINE SODIUM 50 MCG TABLET PO SCH (06:23)
[2017-03-31] MEDS: PANTOPRAZOLE SODIUM 40 MG TABLET.DR PO SCH (06:23)
--- NOTE | 2017-03-31 06:37 | NUR ---
PT C/O LEFT HIP PAIN, AND REQUESTED FOR ANOTHER PAIN MED, WAS GIVEN NORCO PRESCRIBED. PT IS NOW RESTING IN BED.
[2017-03-31 08:00] VITALS: BP 128/74
[2017-03-31] MEDS: GABAPENTIN 100 MG CAPSULE PO SCH ×3 (08:44→17:07)
[2017-03-31] MEDS: CARVEDILOL 12.5 MG TABLET PO SCH ×2 (08:44→17:07)
[2017-03-31] MEDS: AMIODARONE HCL 200 MG TABLET PO SCH (08:44)
[2017-03-31] MEDS: ASPIRIN EC 325 MG TABLET.DR PO SCH (08:44)
[2017-03-31] MEDS: LIDOCAINE 5% PATCH TD SCH (08:45)
--- NOTE | 2017-03-31 19:00 | NUR ---
pt had an accident. pt still complains about pain. pt given pain meds prior to exercise. pt had no acute distress. will continue to endorse new orders.
[2017-03-31] MEDS: MAGNESIUM OXIDE 400 MG TABLET PO SCH (20:18)
[2017-03-31] MEDS: DOCUSATE SODIUM 250 MG CAPSULE PO SCH (20:20)
[2017-03-31 22:19] VITALS: BP 111/56
[2017-04-01] MEDS: PANTOPRAZOLE SODIUM 40 MG TABLET.DR PO SCH (06:59)
[2017-04-01] MEDS: LEVOTHYROXINE SODIUM 50 MCG TABLET PO SCH (07:00)
[2017-04-01] MEDS: HYDROCODONE/APAP 10-325 MG TABLET PO PRN (07:00)
--- NOTE | 2017-04-01 08:00 | NUR ---
RECEIVED PATIENT AWAKE, ALERT AND ORIENTED X3. PATIENT CLAIMED SHE FEELS WARM. LOOSENED BLANKETS. NO COMPLAINTS OF PAIN AT THE MOMENT. NOT IN ANY FORM OF DISTRESS. CALL LIGHT WITHIN REACH.
[2017-04-01] MEDS: CARVEDILOL 12.5 MG TABLET PO SCH ×2 (08:08→17:11)
[2017-04-01] MEDS: GABAPENTIN 100 MG CAPSULE PO SCH ×3 (08:09→16:31)
[2017-04-01] MEDS: ASPIRIN EC 325 MG TABLET.DR PO SCH (08:09)
[2017-04-01] MEDS: AMIODARONE HCL 200 MG TABLET PO SCH (08:09)
[2017-04-01] MEDS: LIDOCAINE 5% PATCH TD SCH (08:10)
[2017-04-01 08:21] VITALS: BP 128/77
[2017-04-01] MEDS: OXYCODONE HCL 5 MG TABLET PO PRN ×2 (11:39→16:30)
--- NOTE | 2017-04-01 11:44 | NUR ---
PATIENT COMPLAINED OF PAIN OVER LEFT LOWER BACK AND HIP RATED 10/10. OXYIR PRN GIVEN.
--- NOTE | 2017-04-01 14:34 | NUR ---
Rehab Team Conference Meeting 04/01/17
--- NOTE | 2017-04-01 16:25 | NUR ---
Patient complained of low back pain rated as 10/10. PRN pain medications given
[2017-04-01] MEDS ORDERED: methylPREDNISolone ACETATE 80 MG VIAL IM ONE (16:30)
--- NOTE | 2017-04-01 18:40 | NUR ---
Patient resting in bed. No complaints of pain/ discomfort at this time. Not in any form of distress.
--- NOTE | 2017-04-01 19:45 | NUR ---
PATIENT ASLEEP IN BED. EASILY AROUSABLE. DENIES PAIN OR DISCOMFORT. NO RESP. DISTRESS NOTED. VSS. CALL LIGHT IN REACH. BED ALARM ON. WILL CONTINUE TO MONITOR.
[2017-04-01 20:13] VITALS: BP 91/52
[2017-04-01] MEDS: MAGNESIUM OXIDE 400 MG TABLET PO SCH (20:35)
[2017-04-01] MEDS: DOCUSATE SODIUM 250 MG CAPSULE PO SCH (20:35)
[2017-04-01 23:00] VITALS: BP 116/60
[2017-04-02] MEDS: LEVOTHYROXINE SODIUM 50 MCG TABLET PO SCH (06:22)
[2017-04-02] MEDS: PANTOPRAZOLE SODIUM 40 MG TABLET.DR PO SCH (06:22)
--- NOTE | 2017-04-02 06:45 | NUR ---
PATIENT ASLEEP IN BED. EASILY AROUSABLE. SLEPT WELL. CALL LIGHT IN REACH. BED ALARM ON. ALL NEEDS ATTENDED.
[2017-04-02] MEDS: OXYCODONE HCL 5 MG TABLET PO PRN ×2 (07:16→17:44)
[2017-04-02 08:03] VITALS: BP 135/68
[2017-04-02] MEDS: CARVEDILOL 12.5 MG TABLET PO SCH ×2 (08:12→18:00)
[2017-04-02] MEDS: AMIODARONE HCL 200 MG TABLET PO SCH (08:12)
[2017-04-02] MEDS: ASPIRIN EC 325 MG TABLET.DR PO SCH (08:12)
[2017-04-02] MEDS: LIDOCAINE 5% PATCH TD SCH (08:12)
[2017-04-02] MEDS: GABAPENTIN 100 MG CAPSULE PO SCH ×3 (08:12→17:46)
--- NOTE | 2017-04-02 08:15 | NUR ---
RECEIVED PATIENT AWAKE IN BED. NO S/S OF DISTRESS. WITH PAIN OVER LEFT HIP ONLY UPON MOVEMENT OXYIR GIVEN AT 7 AM BY AMBULATORY NURSE. CALL LIGHT WITHIN REACH. WILL CONTINUE TO MONITOR.
--- NOTE | 2017-04-02 13:21 | NUR ---
PATIENT SLEEPING. NON-LABORED BREATHING. CALL LIGHT WITHIN REACH.
--- NOTE | 2017-04-02 18:08 | NUR ---
Patient complained of pain over lower back and left leg. rated as 10/10. OYIR PRN given.
--- NOTE | 2017-04-02 18:09 | NUR ---
BP at 100/59, WI at 57. No complaints of dizziness, SOB. Alert and oriented.
--- NOTE | 2017-04-02 19:30 | NUR ---
RECEIVE PATIENT AWKE, ALERT, AND ORIENTED X4, IN NO APPARENT DISTRESS. STATING SHE IS FEELING MUCH BETTER OVERALL SINCE BEING ADMITTED TO ARU. PAIN MANAGEMENT IS MUCH MORE CONTROLLED TODAY. SLEEPING SOUNDLY ON AND OFF THIS EVENING APPEARING VERY COMFORTABLE WITHOUT APPEARANCE OF DISTRESS.CALL LIGHT WITHIN PLACE AAT
[2017-04-02 20:00] VITALS: BP 106/65
[2017-04-02] MEDS: DOCUSATE SODIUM 250 MG CAPSULE PO SCH (20:40)
[2017-04-02] MEDS: MAGNESIUM OXIDE 400 MG TABLET PO SCH (20:41)
--- NOTE | 2017-04-03 06:00 | NUR ---
PAIN MEDS REORDERED BY DR PALMER THEY WERE LATE LAST NIGHT. SLEPT WELL THROUGH THE NIGHT. ONLY WITH GENERALIZED PAIN AFTER AMBULATING TO TOILET THIS MORNING..MEDICATED WITH OXYCODONE PER PATIENT REQUEST. CALL LIGHT WITHIN REACH AAT
[2017-04-03] MEDS: LEVOTHYROXINE SODIUM 50 MCG TABLET PO SCH (06:20)
[2017-04-03] MEDS: PANTOPRAZOLE SODIUM 40 MG TABLET.DR PO SCH (06:20)
[2017-04-03] MEDS ORDERED: OXYCODONE HCL 5 MG TABLET PO PRN (06:30)
[2017-04-03] MEDS ORDERED: HYDROCODONE/APAP 10-325 MG TABLET PO PRN (06:30)
--- NOTE | 2017-04-03 06:42 | NUR ---
OXYCODONE GIVEN ORDERED. DUPLICATE DOCUMENTATION CHARTED ONE WAS AN OVERRIDE MED
[2017-04-03] MEDS ORDERED: OXYCODONE HCL 10 MG TAB.SR.12H PO ONE (06:50)
[2017-04-03] MEDS ORDERED: OXYCODONE HCL 5 MG TABLET ONE (06:52)
[2017-04-03 08:30] VITALS: BP 146/80
[2017-04-03 09:26] VITALS: BP 129/71
[2017-04-03] MEDS: LIDOCAINE 5% PATCH TD SCH (09:26)
[2017-04-03] MEDS: GABAPENTIN 100 MG CAPSULE PO SCH ×2 (09:26→12:15)
[2017-04-03] MEDS: CARVEDILOL 12.5 MG TABLET PO SCH (09:26)
[2017-04-03] MEDS: ASPIRIN EC 325 MG TABLET.DR PO SCH (09:26)
[2017-04-03] MEDS: AMIODARONE HCL 200 MG TABLET PO SCH (09:26)
[2017-04-03] MEDS ORDERED: CARV12.52 PO (11:41)
[2017-04-03] MEDS ORDERED: ASPI-610 PO (11:41)
--- NOTE | 2017-04-03 15:32 | NUR ---
pt was discharged at 1430 with son on his own private car. pt and son instructed about follow up with dr and provided with prescription. pt was also given summary of care from the hospital. pt was taught about smoking cessation hip care and dash diet management. pt was also instructed to follow up with dr and pharmacy for medications. son verbalizes understanding of discharge. pt vitals stable. no signs of acute distress. belongings taken and forms signed. pt was discharged with a wheelchair and helped with tranfer in car with son.
== END 2017-04-03 14:30 | disposition home health service (06) | DRG 559 ==
PROVIDERS: ADMIT Physical Medicine & Rehabilitation Pain Medicine; ATTEND Physical Medicine & Rehabilitation Pain Medicine
DX: M84.48XD Pathological fracture, other site, subsequent encounter for fracture with routine healing (principal); N17.0 Acute kidney failure with tubular necrosis; D68.59 Other primary thrombophilia; M85.80 Other specified disorders of bone density and structure, unspecified site; Z85.3 Personal history of malignant neoplasm of breast; I48.0 Paroxysmal atrial fibrillation; D72.829 Elevated white blood cell count, unspecified; Z91.81 History of falling; M19.90 Unspecified osteoarthritis, unspecified site; M06.9 Rheumatoid arthritis, unspecified; Z96.659 Presence of unspecified artificial knee joint; D75.89 Other specified diseases of blood and blood-forming organs; E03.9 Hypothyroidism, unspecified; H35.30 Unspecified macular degeneration; H91.90 Unspecified hearing loss, unspecified ear; I10 Essential (primary) hypertension; K59.00 Constipation, unspecified; Z79.01 Long term (current) use of anticoagulants; Z90.81 Acquired absence of spleen; R26.9 Unspecified abnormalities of gait and mobility; M47.26 Other spondylosis with radiculopathy, lumbar region; D64.9 Anemia, unspecified; E83.42 Hypomagnesemia; E53.8 Deficiency of other specified B group vitamins; G89.29 Other chronic pain; I71.4 Abdominal aortic aneurysm, without rupture; M41.9 Scoliosis, unspecified; M43.16 Spondylolisthesis, lumbar region; M48.06 Spinal stenosis, lumbar region; M51.16 Intervertebral disc disorders with radiculopathy, lumbar region; Z87.440 Personal history of urinary (tract) infections; M79.1 Myalgia; R79.82 Elevated C-reactive protein (CRP)
CPT/HCPCS: 36415; 83735; 84100; 85025; 86140; 87086; 92523; 97110; 97112; 97116; 97165; 97530; 97535; A4663; J1040; J1170; J2250; J3010; J7030

== ENCOUNTER 2017-03-26 10:03 | Day surgery (SDC) | payer MEDICARE ==
[~2017-03-26 10:03] MED LIST changes: -AMIO200T2 PO; -DIPH50CA37 PO; -HYDR-3326 PO; +MAGN30OR PO; -METH4TAB16 PO; -OMEP20TA20 PO; -ZOLP5TAB2 PO
[2017-03-26] MEDS ORDERED: DEXAMETHASONE SOD PHOSPHATE 4 MG INJ ONE (10:28)
[2017-03-26] MEDS ORDERED: IOHEXOL-240 MG , 50 ML VIAL IV ONE (10:28)
[2017-03-26] MEDS ORDERED: IOHEXOL 300MG/ML 50 ML VIAL ONE (10:29)
[2017-03-26] MEDS ORDERED: BETAMETHASONE ACET/BETAMET NA PH 30 MG/5 ML VIAL IM ONE (10:33)
== END 2017-03-26 11:30 | disposition still patient (30) ==
LOC: DS 10:03
PROVIDERS: ATTEND Anesthesiology
DX: M47.896 Other spondylosis, lumbar region (principal); M48.06 Spinal stenosis, lumbar region; S32.039A Unspecified fracture of third lumbar vertebra, initial encounter for closed fracture; X58.XXXA Exposure to other specified factors, initial encounter; Y93.9 Activity, unspecified; Y92.89 Other specified places as the place of occurrence of the external cause; Y99.9 Unspecified external cause status; M54.17 Radiculopathy, lumbosacral region; I10 Essential (primary) hypertension; E03.9 Hypothyroidism, unspecified; M06.9 Rheumatoid arthritis, unspecified; D64.9 Anemia, unspecified
CPT/HCPCS: 74000; 76000; 86850; 86900; 86901; J0702; J1100; Q9966; Q9967

== ENCOUNTER 2017-11-02 15:26 | Inpatient (IN) | payer MEDICARE ==
[~2017-11-02] VITALS: Ht 162.6 cm; Wt 60.8 kg
[~2017-11-02 15:26] MED LIST changes: +ASPI-610 PO; +CARV12.52 PO; -HYDR-548 PO; -HYDR1DIS2 IV; -LIDO30AD10 TD; -METO-302 PO; +METO-356 PO; -ONDA4VIA30 IV; -OXYC5TAB3 PO
[2017-11-02] MEDS ORDERED: IPRATROPIUM BROMIDE 0.5 MG/2.5 ML NEBU NEB ONE (16:02)
--- NOTE | 2017-11-02 16:02 | NUR ---
DR KANG AT THE BEDSIDE FOR EVAL AND EXAM, PT ABLE TO SPEAK IN FULL SENTENCES.
[2017-11-02] MEDS ORDERED: IV NORMAL SALINE 500 ML IV ONE (16:15)
[2017-11-02] MEDS ORDERED: IPRATROPIUM BROMIDE 0.5 MG/2.5 ML NEBU ONE (16:27)
[2017-11-02 16:34] LABS: BASOPHILS % (AUTO) 0.5 % (0.0-2.0); EOSINOPHILS % (AUTO) 0.1 % (0.0-7.0); HEMATOCRIT 37.1 % (31.2-41.9); HEMOGLOBIN 12.5 g/dL (10.9-14.3); LYMPHOCYTES # (AUTO) 1.5 K/uL (20.0-40.0); LYMPHOCYTES % (AUTO) 18.2 % (20.5-51.5); MEAN CORPUSCULAR HEMOGLOBIN 33.8 uug (24.7-32.8); MEAN CORPUSCULAR HGB CONC 34 g/dL (32.3-35.6); MEAN CORPUSCULAR VOLUME 100.5 fL (75.5-95.3); MONOCYTES # (AUTO) 2.5 K/uL (2.0-10.0); MONOCYTES % (AUTO) 30.3 % (0.0-11.0); NEUTROPHILS # (AUTO) 4.2 K/uL (1.8-8.9); NEUTROPHILS % (AUTO) 50.9 % (38.5-71.5); PLATELET COUNT (AUTO) 286 K/uL (179-408); RED BLOOD CELL COUNT(AUTO) 3.69 MIL/uL (3.63-4.92); WHITE BLOOD COUNT (AUTO) 8.3 K/uL (3.8-11.8)
[2017-11-02 16:39] LABS: CARBON DIOXIDE 27 mmol/L (21-32); CHLORIDE 103 mmol/L (98-107); CREATININE 1.2 mg/dL (0.6-1.3); GLUCOSE 96 mg/dL (74-106); POTASSIUM 3.8 mmol/L (3.5-5.1); UREA NITROGEN, BLOOD 27 mg/dL (7-18)
[2017-11-02 16:50] LABS: ALANINE AMINOTRANSFERASE 34 U/L (14-59); ALKALINE PHOSPHATASE 53 U/L (50-136); ASPARTATE AMINOTRANSFERASE 40 U/L (15-37); BILIRUBIN,TOTAL 0.3 mg/dL (0.2-1.0); CREATINE KINASE, TOTAL 71 U/L (26-192); TOTAL PROTEIN, SERUM 7.3 g/dL (6.4-8.2)
--- NOTE | 2017-11-02 17:10 | NUR ---
Patient is resting comfortably in bed with eyes closed, NAD noted.
[2017-11-02 17:36] LABS: NEUTROPHILS % (MANUAL) 0 % (42-75)
--- NOTE | 2017-11-02 17:59 | NUR ---
Pt not candidate for MRSA. Belonging list completed and placed in the chart.
--- NOTE | 2017-11-02 19:00 | NUR ---
ADMITTED IN TELE UNIT UNDER THE CARE OF DR MORGAN, BELONGING LIST DONE.
[2017-11-02 20:00] VITALS: BP 148/70
[2017-11-02] MEDS ORDERED: LEVOFLOXACIN 500 MG/D5W 500 MG in PREMIXED 1 EACH IV SCH (20:45)
[2017-11-02] MEDS ORDERED: ONDANSETRON 4 MG/2 ML VIAL IV PRN (20:45)
[2017-11-02] MEDS ORDERED: ALBUTEROL SULFATE 2.5 MG/3 ML NEBU NEB PRN (20:45)
[2017-11-02] MEDS ORDERED: TEMAZEPAM 15 MG CAPSULE PO PRN (20:45)
[2017-11-02] MEDS ORDERED: MORPHINE SULFATE 2 MG/1 ML DISP.SYRIN IV PRN (20:45)
[2017-11-02] MEDS ORDERED: ACETAMINOPHEN 325 MG TABLET PO PRN (20:45)
[2017-11-02] MEDS ORDERED: DOCUSATE SODIUM 250 MG CAPSULE PO SCH (21:00)
[2017-11-02] MEDS ORDERED: LEVOFLOXACIN 500 MG/D5W 500 MG in PREMIXED 1 EACH IV ONE (21:15)
[2017-11-02] MEDS: MORPHINE SULFATE 4 MG/1 ML DISP.SYRIN IV PRN (22:37)
[2017-11-03] VITALS: BP 134/63
[2017-11-03 04:00] VITALS: BP 128/61
[2017-11-03] MEDS: PANTOPRAZOLE SODIUM 40 MG TABLET.DR PO SCH (06:04)
--- NOTE | 2017-11-03 07:02 | NUR ---
PATIENT SLEPT MOST OF THE NIGHT,NO SOB NO CHEST PAIN, RYTHM SINUS BRADYS HIGH FIFTEEN, CONT ON PAIN MANAGEMENT DUE TO RA, OA, ON OXYGEN 2LITERS NC FOR ASSIST, ASSIST TO BATHROOOM FOR BLADDER ELIMINATIONS. DX OF PNA, AFEBRILE AT THIS TIME, WITH NON PRODUCTIVE COUGH AT THIS TIME, CALL LIGHT WITHIN REACH.
[2017-11-03 07:34] LABS: BASOPHILS # (AUTO) 0.1 K/uL (0.0-8.0); BASOPHILS % (AUTO) 0.7 % (0.0-2.0); EOSINOPHILS % (AUTO) 0.1 % (0.0-7.0); HEMATOCRIT 35.9 % (31.2-41.9); HEMOGLOBIN 12.1 g/dL (10.9-14.3); LYMPHOCYTES # (AUTO) 2.1 K/uL (20.0-40.0); LYMPHOCYTES % (AUTO) 26.7 % (20.5-51.5); MEAN CORPUSCULAR HEMOGLOBIN 33.9 uug (24.7-32.8); MEAN CORPUSCULAR HGB CONC 34 g/dL (32.3-35.6); MEAN CORPUSCULAR VOLUME 100.2 fL (75.5-95.3); MONOCYTES # (AUTO) 2.1 K/uL (2.0-10.0); MONOCYTES % (AUTO) 26.9 % (0.0-11.0); NEUTROPHILS # (AUTO) 3.6 K/uL (1.8-8.9); NEUTROPHILS % (AUTO) 45.6 % (38.5-71.5); PLATELET COUNT (AUTO) 261 K/uL (179-408); RED BLOOD CELL COUNT(AUTO) 3.58 MIL/uL (3.63-4.92); WHITE BLOOD COUNT (AUTO) 7.8 K/uL (3.8-11.8)
[2017-11-03 07:44] LABS: ALANINE AMINOTRANSFERASE 28 U/L (14-59); ALKALINE PHOSPHATASE 45 U/L (50-136); ASPARTATE AMINOTRANSFERASE 37 U/L (15-37); BILIRUBIN,TOTAL 0.3 mg/dL (0.2-1.0); CARBON DIOXIDE 23 mmol/L (21-32); CHLORIDE 103 mmol/L (98-107); CREATININE 0.9 mg/dL (0.6-1.3); GLUCOSE 73 mg/dL (74-106); MAGNESIUM 1.8 mg/dL (1.8-2.4); PHOSPHOROUS 4.3 mg/dL (2.5-4.9); POTASSIUM 3.5 mmol/L (3.5-5.1); TOTAL PROTEIN, SERUM 6.3 g/dL (6.4-8.2); UREA NITROGEN, BLOOD 25 mg/dL (7-18)
--- NOTE | 2017-11-03 08:00 | NUR ---
RECEIVED PATIENT AWAKE ALERT AND ORIENTED DENIES PAIN OR DISCOMFORTS AT THIS TIME ON O2 ON AND OFF PATIENT REMOVES THE [place] AT TIMES BUT NO SOB AT THIS TIME NOTED OCCASSIONAL COUGHING EPISODES REMAIN ON ATB ORDERED WITH NO ADVERSE OR ALLERGIC REACTIONS AT THIS TIME MADE COMFORTABLE AND PERSONAL NEEDS KEPT WITHIN EASY REACH.WILL CONTINUE TO OBSERVE.
[2017-11-03] MEDS: FUROSEMIDE 20 MG/2 ML VIAL IV SCH (08:26)
[2017-11-03 09:17] LABS: LYMPHOCYTES % (MANUAL) 27 % (20-40); MONOCYTES % (MANUAL) 13 % (2-10); NEUTROPHILS % (MANUAL) 60 % (42-75)
[2017-11-03 11:31] VITALS: BP 119/65
--- NOTE | 2017-11-03 14:00 | NUR ---
SEEN AND EXAMINED BY DR GUERRERO WITH NEW ORDERS AND NOTED
[2017-11-03 16:00] VITALS: BP 115/68
--- NOTE | 2017-11-03 17:27 | NUR ---
PATIENT SEEN BY MAIN HARRIS WITH NEW ORDERS AND NOTED.SPUTUM OBTAINED FROM PATIENT AND SENT TO THE LAB ORDERED.
--- NOTE | 2017-11-03 18:00 | NUR ---
ON ROOM AIR WITH SATS AT 94% AT THIS TIME DENIES SHORTNESS OF BREATH WILL CONTINUE TO OBSERVE.
[2017-11-03 19:00] VITALS: BP 120/66
--- NOTE | 2017-11-03 20:00 | NUR ---
RECEIVED PATIENT AWAKE IN BED, SHE'S ALERT AND ORIENTED X3 AND ABLE TO STATE HER NEEDS. SHE DENIES PAIN OR ANY DISCOMFORT. PATIENT ON TELE AT 78 SINUS RHYTHM ON THE MONITOR. SAFETY MEASURES IN PLACE, CALL LIGHT PLACED WITHIN PATIENT'S REACH
[2017-11-03] MEDS: DOCUSATE SODIUM 100 MG CAPSULE PO SCH (20:43)
[2017-11-03] MEDS ORDERED: LEVOFLOXACIN 250MG /D5W 250 MG in PREMIXED 1 EACH IV SCH (21:00)
[2017-11-03] MEDS: MORPHINE SULFATE 4 MG/1 ML DISP.SYRIN IV PRN (21:36)
[2017-11-04] VITALS: BP 107/56
[2017-11-04 04:00] VITALS: BP 115/78
[2017-11-04] MEDS: PANTOPRAZOLE SODIUM 40 MG TABLET.DR PO SCH (06:42)
--- NOTE | 2017-11-04 06:46 | NUR ---
PATIENT SLEPT THROUGH MOST OF THE NIGHT, MORPHINE X1 WAS GIVEN FOR PAIN WITH EFFECT. SAFETY MEASURES MAINTAINED, CALL LIGHT WITHIN PATIENT'S REACH.ALL NEEDS MET ON THIS SHIFT
[2017-11-04 06:47] LABS: BASOPHILS % (AUTO) 0.6 % (0.0-2.0); EOSINOPHILS % (AUTO) 0.1 % (0.0-7.0); HEMATOCRIT 40.8 % (31.2-41.9); HEMOGLOBIN 13.7 g/dL (10.9-14.3); LYMPHOCYTES # (AUTO) 2.3 K/uL (20.0-40.0); LYMPHOCYTES % (AUTO) 34.3 % (20.5-51.5); MEAN CORPUSCULAR HEMOGLOBIN 33.6 uug (24.7-32.8); MEAN CORPUSCULAR HGB CONC 34 g/dL (32.3-35.6); MEAN CORPUSCULAR VOLUME 99.8 fL (75.5-95.3); MONOCYTES # (AUTO) 1.6 K/uL (2.0-10.0); MONOCYTES % (AUTO) 23.7 % (0.0-11.0); NEUTROPHILS # (AUTO) 2.8 K/uL (1.8-8.9); NEUTROPHILS % (AUTO) 41.3 % (38.5-71.5); PLATELET COUNT (AUTO) 294 K/uL (179-408); RED BLOOD CELL COUNT(AUTO) 4.09 MIL/uL (3.63-4.92); WHITE BLOOD COUNT (AUTO) 6.8 K/uL (3.8-11.8)
--- NOTE | 2017-11-04 07:35 | NUR ---
Patient noted sitting up in bed watching tv, no complaints of pain at this time, no signs of distress noted, call light in reach, bed alarm in place, bed locked and in lowest position
[2017-11-04 08:50] LABS: CARBON DIOXIDE 25 mmol/L (21-32); CHLORIDE 102 mmol/L (98-107); CREATININE 1.1 mg/dL (0.6-1.3); GLUCOSE 83 mg/dL (74-106); MAGNESIUM 1.7 mg/dL (1.8-2.4); PHOSPHOROUS 3.4 mg/dL (2.5-4.9); POTASSIUM 3.5 mmol/L (3.5-5.1); UREA NITROGEN, BLOOD 25 mg/dL (7-18)
[2017-11-04] MEDS: FUROSEMIDE 20 MG/2 ML VIAL IV SCH (09:13)
[2017-11-04 11:18] LABS: BAND % (MANUAL) 6 % (0-10); LYMPHOCYTES % (MANUAL) 31 % (20-40); MONOCYTES % (MANUAL) 23 % (2-10); NEUTROPHILS % (MANUAL) 40 % (42-75)
[2017-11-04 12:00] VITALS: BP 101/66
[2017-11-04] MEDS: HYDROCODONE/APAP 10-325 MG TABLET PO PRN ×2 (12:27→23:41)
[2017-11-04 15:11] VITALS: BP 90/59
[2017-11-04] MEDS ORDERED: BOOST PLUS 237 ML LIQUID (RICH CHOCOLATE) PO SCH (17:00)
[2017-11-04] MEDS: BOOST PLUS 237 ML LIQUID (RICH CHOCOLATE) PO SCH (17:00)
[2017-11-04] MEDS: MAGNESIUM SULFATE/D5W 100 ML IV SCH ×2 (18:16→20:32)
[2017-11-04 19:00] VITALS: BP 103/58
--- NOTE | 2017-11-04 19:30 | NUR ---
PT IN ROOM ALERT AWAKE AND ABSENTEE-SHAWNEE. DENIES ANY PAIN OR DISCOMFORT AT THIS TIME. MIDLINE INTACT TO LEFT ARM. CARDIOLOGY TEACHER SHOWING SINUS RHYTHM. NO REACTION TO CURRENT IV ATV THERAPY. CONTINUE IV MG AT THIS TIME. CONTINUE TO MONITOR. CALL LIGHT PLACED WITHIN REACH.
[2017-11-04] MEDS: DOCUSATE SODIUM 100 MG CAPSULE PO SCH (20:34)
[2017-11-05] VITALS: BP 96/55
--- NOTE | 2017-11-05 00:59 | NUR ---
PT IN ROOM ASLEEP AT THIS TIME. NO ACUTE DISTRESS NOTED. CONTINUE TO MONITOR. CALL LIGHT IS WITHIN REACH.
[2017-11-05 04:00] VITALS: BP 101/60
--- NOTE | 2017-11-05 05:00 | NUR ---
PT IN ROOM ASLEEP IN NO ACUTE DISTRESS. PT REFUSES TO HAVE OXYGEN AT THIS TIME BUT NO S/S OF RESP DISTRESS. OXYGEN SAT NOTED 94%. STATES SHE JUST WANTS TO SLEEP. REFUSES PAIN MEDICATION AND IS AWARE OF REQUESTING FOR ASSISTANCE NEEDED. CONTINUE TO MONITOR. CALL LIGHT PLACED WITHIN REACH.
[2017-11-05] MEDS: PANTOPRAZOLE SODIUM 40 MG TABLET.DR PO SCH (06:09)
--- NOTE | 2017-11-05 07:00 | NUR ---
RECEIVED REPORT FROM FLEXIBLE MACHINING SYSTEM MACHINIST NURSE, PATIENT IN BED AWAKE, NO EVIDENCE OF DISTRESS NOTED AT THIS TIME, BED IN LOW POSITION, SIDE RIALS UP X2. BED ALARM ON.
[2017-11-05 07:41] LABS: CARBON DIOXIDE 30 mmol/L (21-32); CHLORIDE 99 mmol/L (98-107); GLUCOSE 92 mg/dL (74-106); MAGNESIUM 2.7 mg/dL (1.8-2.4); POTASSIUM 3.6 mmol/L (3.5-5.1); UREA NITROGEN, BLOOD 38 mg/dL (7-18)
[2017-11-05] MEDS: HYDROCODONE/APAP 10-325 MG TABLET PO PRN (08:31)
[2017-11-05] MEDS: BOOST PLUS 237 ML LIQUID (RICH CHOCOLATE) PO SCH ×2 (08:31→12:23)
[2017-11-05] MEDS: FUROSEMIDE 20 MG/2 ML VIAL IV SCH (08:31)
[2017-11-05 10:21] VITALS: BP 93/58
[2017-11-05 11:24] VITALS: BP 98/59
[2017-11-05 15:46] VITALS: BP 100/58
--- NOTE | 2017-11-05 16:50 | NUR ---
PATIENT WAS GIVEN DISCHARGE INSTRUCTIONS, IV REMOVED, EDUCATED ON PNEUMONIA AND FLU VACCINE REFUSAL, AND PNEUMONIA. SMOKING CESSATION AND VTE PREVENTION INFORMATION GIVEN. PATIENT WAS PICKED UP BY [employer].
== END 2017-11-05 16:45 | disposition home or self-care (01) | DRG 291 ==
LOC: ER 15:29 → TELE 18:48
PROVIDERS: ADMIT Internal Medicine; ATTEND Internal Medicine
DX: I11.0 Hypertensive heart disease with heart failure (principal); J18.0 Bronchopneumonia, unspecified organism; J96.01 Acute respiratory failure with hypoxia; M06.9 Rheumatoid arthritis, unspecified; I48.0 Paroxysmal atrial fibrillation; C94.6 Myelodysplastic disease, not elsewhere classified; J98.11 Atelectasis; I50.33 Acute on chronic diastolic (congestive) heart failure; Z90.81 Acquired absence of spleen; Z96.641 Presence of right artificial hip joint; Z96.651 Presence of right artificial knee joint; Z90.710 Acquired absence of both cervix and uterus; Z85.3 Personal history of malignant neoplasm of breast; E03.9 Hypothyroidism, unspecified; H35.30 Unspecified macular degeneration; H91.90 Unspecified hearing loss, unspecified ear; Z79.82 Long term (current) use of aspirin; M19.90 Unspecified osteoarthritis, unspecified site; K21.9 Gastro-esophageal reflux disease without esophagitis; J20.9 Acute bronchitis, unspecified; I70.0 Atherosclerosis of aorta; I25.2 Old myocardial infarction; M48.00 Spinal stenosis, site unspecified
CPT/HCPCS: 36415; 70030-TC; 71045; 83735; 84100; 85025; 87040; 87070; 93005; 93307; A4663; J1940; J1956; J2270; J3475; J3590; J7050

== ENCOUNTER 2017-11-15 10:53 | Emergency (ER) | payer MEDICARE ==
[~2017-11-15] VITALS: Ht 162.6 cm; Wt 60.8 kg
[2017-11-15] MEDS ORDERED: methylPREDNISolone SOD SUCC 40 MG/ML VIAL IM ONE (11:45)
--- NOTE | 2017-11-15 11:45 | NUR ---
Patient discharged to home in stable conditon. Written and verbal after care instructions given to patient and adult daughter. Patient and family verbalized understanding of instructions.
[2017-11-15] MEDS ORDERED: methylPREDNISolone SOD SUCC 125 MG/2 ML VIAL ONE (11:57)
== END 2017-11-15 11:47 | disposition home or self-care (01) ==
LOC: ER 10:53
DX: M43.6 Torticollis (principal); M54.2 Cervicalgia; I48.0 Paroxysmal atrial fibrillation; K21.9 Gastro-esophageal reflux disease without esophagitis; Z79.82 Long term (current) use of aspirin; Z88.8 Allergy status to other drugs, medicaments and biological substances; Z96.641 Presence of right artificial hip joint; E03.9 Hypothyroidism, unspecified; R06.9 Unspecified abnormalities of breathing
CPT/HCPCS: 96372; 99283; A4663; J2930